=== PATIENT | female | born 1945 | race Caucasian/White ===

== ENCOUNTER → 2018-04-22 11:11 | Outpatient (CLI) | payer OTHER, SELFPAY ==
[2018-04-22 12:56] LABS: Thyroid Stimulating Hormone 2.19 uIU/mL (0.47-4.68)
== END ==
PROVIDERS: PCP Physician Assistant; Visit Provider Physician Assistant
DX: E03.9 Hypothyroidism, unspecified (principal)
CPT/HCPCS: 36415; 84443

== ENCOUNTER → 2019-08-15 11:03 | Outpatient (CLI) | payer OTHER, SELFPAY ==
--- NOTE | 2019-08-15 | DI.MG.S_ITS ---
BILATERAL DIGITAL SCREENING MAMMOGRAM 3D/2D WITH CAD: 08/15/2019 CLINICAL: Routine screening. Comparison is made to exams dated: 08/10/2017 mammogram, 05/09/2015 mammogram, and 04/21/2013 mammogram - [facility]. The tissue of both breasts is extremely dense, which lowers the sensitivity of mammography. Current study was also evaluated with a Computer Aided Detection (CAD) system. No significant masses, calcifications, or other findings are seen in either breast. There has been no significant interval change. IMPRESSION: NEGATIVE There is no mammographic evidence of malignancy. A 1 year screening mammogram is recommended. This exam was interpreted at Station ID: [id number]. NOTE: For mammograms, a report in lay terms will be sent to the patient. Approximately 15% of breast malignancies will not be visualized mammographically. In the management of a palpable breast mass, a negative mammogram must not discourage biopsy of a clinically suspicious lesion. Electronically Signed By: Celia eid/johnson:08/15/2019 12:00:14 letter sent: Normal Exam ACR BI-RADS Category 1: Negative 3341F
== END ==
PROVIDERS: Family Provider Physician Assistant; PCP Physician Assistant; Visit Provider Physician Assistant
DX: Z12.31 Encounter for screening mammogram for malignant neoplasm of breast (principal)
CPT/HCPCS: 77063; 77067

== ENCOUNTER → 2019-11-17 19:14 | Outpatient (ROUT) | payer MEDICARE, SELFPAY ==
[2019-11-17 19:36] LABS: Add Manual Diff / Slide Review NO; Basophils Absolute Auto 100 /uL (0-100); Basophils Percent Auto 0.9 % (0-2); Eosinophils Absolute Auto 200 /uL (0-450); Eosinophils Percent Auto 2.7 % (2-4); Hematocrit 38.4 % (36-46); Hemoglobin 13.1 g/dL (12.0-16.0); Lymphocytes Absolute Auto 2200 /uL (1100-4500); Lymphocytes Percent Auto 35.8 % (25-40); Mean Corpuscular HGB Conc 34.1 % (30-36); Mean Corpuscular Volume 96.9 fL (80-100); Monocytes Absolute Auto 600 /uL (0-900); Monocytes Percent Auto 9.3 % (3-14); Neutrophils Absolute Auto 3200 /uL (1500-7000); Neutrophils Percent Auto 51.3 % (50-75); Platelet Count 222 X10^3/uL (150-400); Red Blood Cell Count 3.96 X10^6/uL (4.0-5.2); Red Cell Distribution Width 12.4 % (11.6-14.8); White Blood Cell Count 6.3 X10^3/uL (4.5-11.0)
[2019-11-17 19:46] LABS: Alanine Aminotransferase 25 IU/L (<35); Albumin 4.3 g/dL (3.5-5.0); Albumin Globulin Ratio 1.4 (1.0-2.8); Alkaline Phosphatase 70 U/L (38-126); Aspartate Aminotransferase 35 IU/L (14-36); BUN Creatinine Ratio 25.6 (6-22); Bilirubin Total 0.4 mg/dL (0.2-1.3); Blood Urea Nitrogen 23 mg/dL (7-17); Calcium 9.6 mg/dL (8.4-10.2); Carbon Dioxide 26 mmol/L (22-32); Chloride 96 mmol/L (98-107); Cholesterol 191 mg/dL (140-199); Estimated Glomerular Filt Rate > 60.0 mL/min (>60); Glucose 83 mg/dL (80-110); HDL Cholesterol 67 mg/dL (40-60); HEMOLYSIS 16 (0-50); LDL Cholesterol Calculated 90 mg/dL (<100); Potassium 4.4 mmol/L (3.4-5.1); Sodium 133 mmol/L (137-145); Total Protein 7.3 g/dL (6.3-8.2); Triglycerides 168 mg/dL (35-150)
[2019-11-17 20:01] LABS: Vitamin D 25 Hydroxy (D3) 78.2 ng/mL (30.0-100.0)
[2019-11-17 20:14] LABS: TSH w/ Reflex to FT4 0.72 uIU/mL (0.47-4.68)
== END ==
PROVIDERS: Family Provider Physician Assistant; PCP Physician Assistant; Visit Provider Physician Assistant
DX: E03.9 Hypothyroidism, unspecified (principal); E78.2 Mixed hyperlipidemia; E55.9 Vitamin D deficiency, unspecified
CPT/HCPCS: 80053; 80061; 82306; 84443; 85025

== ENCOUNTER → 2019-11-29 13:35 | Outpatient (CLI) | payer MEDICARE, SELFPAY | PROVIDERS: Family Provider Physician Assistant; PCP Physician Assistant; Referring Provider Physician Assistant; Visit Provider Physician Assistant | DX: M85.832 Other specified disorders of bone density and structure, left forearm (principal); Z78.0 Asymptomatic menopausal state; E07.9 Disorder of thyroid, unspecified | CPT/HCPCS: 77080; 77081 ==

== ENCOUNTER → 2020-08-22 15:50 | Outpatient (CLI) | payer MEDICARE, SELFPAY ==
--- NOTE | 2020-08-22 15:57 | DI.RAD.S_ITS ---
PROCEDURE: XR KNEE LT 3V INDICATIONS: left knee pain TECHNIQUE: 3 views of the knee were acquired. COMPARISON: None. FINDINGS: Bones: No fractures or dislocations. No suspicious bony lesions. Slight narrowing of the lateral facet of the patellofemoral joint. Soft tissues: No joint effusion. No suspicious soft tissue calcifications. IMPRESSION: No trauma found, no effusion or intra-articular loose body seen. A mild degree of degenerative joint space narrowing is noted at the lateral facet of the patellofemoral joint, and otherwise a source of current pain is not found. Dictated by: Emery De La Torre M.D. on 08/22/2020 at 16:22 Approved by: Emery De La Torre M.D. on 08/22/2020 at 16:23
== END ==
PROVIDERS: Family Provider Physician Assistant; PCP Physician Assistant; Referring Provider Physician Assistant; Visit Provider Physician Assistant
DX: M25.562 Pain in left knee (principal)
CPT/HCPCS: 73562

== ENCOUNTER → 2020-08-30 14:22 | Outpatient (CLI) | payer MEDICARE, SELFPAY ==
[2020-08-30 14:38] LABS: Add Manual Diff / Slide Review NO; Basophils Absolute Auto 100 /uL (0-100); Basophils Percent Auto 0.9 % (0-2); Eosinophils Absolute Auto 200 /uL (0-450); Eosinophils Percent Auto 2.4 % (2-4); Hematocrit 36.3 % (36-46); Hemoglobin 12.6 g/dL (12.0-16.0); Lymphocytes Absolute Auto 2100 /uL (1100-4500); Lymphocytes Percent Auto 28.5 % (25-40); Mean Corpuscular HGB Conc 34.8 % (30-36); Mean Corpuscular Volume 97.7 fL (80-100); Monocytes Absolute Auto 500 /uL (0-900); Monocytes Percent Auto 7.1 % (3-14); Neutrophils Absolute Auto 4400 /uL (1500-7000); Neutrophils Percent Auto 61.1 % (50-75); Platelet Count 226 X10^3/uL (150-400); Red Blood Cell Count 3.71 X10^6/uL (4.0-5.2); Red Cell Distribution Width 12.8 % (11.6-14.8); White Blood Cell Count 7.2 X10^3/uL (4.5-11.0)
[2020-08-30 15:15] LABS: Alanine Aminotransferase 32 IU/L (<35); Albumin 4.3 g/dL (3.5-5.0); Albumin Globulin Ratio 1.4 (1.0-2.8); Alkaline Phosphatase 78 U/L (38-126); Aspartate Aminotransferase 37 IU/L (14-36); BUN Creatinine Ratio 17.9 (6-22); Bilirubin Total 0.4 mg/dL (0.2-1.3); Blood Urea Nitrogen 21 mg/dL (7-17); Carbon Dioxide 29 mmol/L (22-32); Chloride 98 mmol/L (98-107); Cholesterol 192 mg/dL (140-199); Estimated Glomerular Filt Rate 45.2 mL/min (>60); Glucose 96 mg/dL (80-110); HDL Cholesterol 70 mg/dL (40-60); HEMOLYSIS 18 (0-50); LDL Cholesterol Calculated 78 mg/dL (<100); Sodium 131 mmol/L (137-145); Total Protein 7.3 g/dL (6.3-8.2); Triglycerides 220 mg/dL (35-150)
[2020-08-30 15:31] LABS: Vitamin D 25 Hydroxy (D3) 60.8 ng/mL (30.0-100.0)
[2020-08-30 15:45] LABS: TSH w/ Reflex to FT4 7.72 uIU/mL (0.47-4.68)
[2020-08-30 16:15] LABS: Free T4, Direct Thyroxine 0.94 ng/dL (0.78-2.19)
== END ==
PROVIDERS: Family Provider Physician Assistant; PCP Physician Assistant; Referring Provider Physician Assistant; Visit Provider Physician Assistant
DX: E03.9 Hypothyroidism, unspecified (principal); E78.2 Mixed hyperlipidemia; E55.9 Vitamin D deficiency, unspecified
CPT/HCPCS: 36415; 80053; 80061; 82306; 84439; 84443; 85025

== ENCOUNTER → 2020-09-26 14:05 | Outpatient (CLI) | payer MEDICARE, SELFPAY ==
[2020-09-26 14:44] LABS: Alanine Aminotransferase 24 IU/L (<35); Albumin 4.3 g/dL (3.5-5.0); Albumin Globulin Ratio 1.6 (1.0-2.8); Alkaline Phosphatase 67 U/L (38-126); Aspartate Aminotransferase 29 IU/L (14-36); BUN Creatinine Ratio 21.9 (6-22); Bilirubin Total 0.4 mg/dL (0.2-1.3); Blood Urea Nitrogen 23 mg/dL (7-17); Calcium 9.2 mg/dL (8.4-10.2); Carbon Dioxide 30 mmol/L (22-32); Chloride 97 mmol/L (98-107); Estimated Glomerular Filt Rate 51.2 mL/min (>60); Globulin 2.7 g/dL (1.7-4.1); Glucose 117 mg/dL (80-110); HEMOLYSIS < 15 (0-50); Potassium 4.6 mmol/L (3.4-5.1); Sodium 130 mmol/L (137-145)
[2020-09-26 15:15] LABS: TSH w/ Reflex to FT4 0.53 uIU/mL (0.47-4.68)
== END ==
PROVIDERS: Family Provider Physician Assistant; PCP Physician Assistant; Referring Provider Physician Assistant; Visit Provider Physician Assistant
DX: E03.9 Hypothyroidism, unspecified (principal); E87.1 Hypo-osmolality and hyponatremia
CPT/HCPCS: 36415; 80053; 84443

== ENCOUNTER → 2020-10-07 14:25 | Outpatient (CLI) | payer MEDICARE, SELFPAY ==
[2020-10-07 16:40] LABS: Sodium Urine Random 22 mmol/L (30-90)
[2020-10-07 17:21] LABS: BUN Creatinine Ratio 18.3 (6-22); Blood Urea Nitrogen 20 mg/dL (7-17); Carbon Dioxide 27 mmol/L (22-32); Chloride 98 mmol/L (98-107); Estimated Glomerular Filt Rate 49.1 mL/min (>60); Glucose 106 mg/dL (80-110); HEMOLYSIS < 15 (0-50); Potassium 4.3 mmol/L (3.4-5.1); Sodium 130 mmol/L (137-145)
[2020-10-08 14:10] LABS: Osmolality Urine 284 mOsmol/kg (.); Osmolality, Serum 279 mOsmol/kg (280-301)
== END ==
PROVIDERS: Family Provider Physician Assistant; PCP Physician Assistant; Referring Provider Physician Assistant; Visit Provider Physician Assistant
DX: E03.9 Hypothyroidism, unspecified (principal); E87.1 Hypo-osmolality and hyponatremia
CPT/HCPCS: 36415; 80048; 83930; 83935; 84300

== ENCOUNTER → 2020-12-12 13:49 | Outpatient (CLI) | payer OTHER, SELFPAY ==
[2020-12-12 14:35] LABS: Add Manual Diff / Slide Review NO; Basophils Absolute Auto 100 /uL (0-100); Eosinophils Absolute Auto 100 /uL (0-450); Eosinophils Percent Auto 1.9 % (2-4); Hematocrit 36.6 % (36-46); Hemoglobin 12.5 g/dL (12.0-16.0); Lymphocytes Absolute Auto 2000 /uL (1100-4500); Lymphocytes Percent Auto 34.6 % (25-40); Mean Corpuscular Hemoglobin 33.2 PG (26-34); Mean Corpuscular Volume 97.5 fL (80-100); Monocytes Absolute Auto 500 /uL (0-900); Neutrophils Absolute Auto 3100 /uL (1500-7000); Neutrophils Percent Auto 54.5 % (50-75); Platelet Count 210 X10^3/uL (150-400); Red Blood Cell Count 3.76 X10^6/uL (4.0-5.2); Red Cell Distribution Width 12.8 % (11.6-14.8); White Blood Cell Count 5.7 X10^3/uL (4.5-11.0)
[2020-12-12 15:36] LABS: Alanine Aminotransferase 26 IU/L (<35); Albumin 4.1 g/dL (3.5-5.0); Albumin Globulin Ratio 1.5 (1.0-2.8); Alkaline Phosphatase 69 U/L (38-126); Aspartate Aminotransferase 30 IU/L (14-36); BUN Creatinine Ratio 21.4 (6-22); Bilirubin Total 0.3 mg/dL (0.2-1.3); Blood Urea Nitrogen 18 mg/dL (7-17); Calcium 9.2 mg/dL (8.4-10.2); Carbon Dioxide 29 mmol/L (22-32); Chloride 96 mmol/L (98-107); Estimated Glomerular Filt Rate > 60.0 mL/min (>60); Globulin 2.7 g/dL (1.7-4.1); Glucose 122 mg/dL (80-110); HEMOLYSIS < 15 (0-50); Potassium 4.2 mmol/L (3.4-5.1); Sodium 131 mmol/L (137-145); Total Protein 6.8 g/dL (6.3-8.2)
[2020-12-12 15:54] LABS: Sodium Urine Random 42 mmol/L (30-90)
[2020-12-12 16:06] LABS: TSH w/ Reflex to FT4 1.95 uIU/mL (0.47-4.68)
[2020-12-13 13:15] LABS: Osmolality Urine 313 mOsmol/kg (.); Osmolality, Serum 281 mOsmol/kg (280-301)
== END ==
PROVIDERS: Family Provider Physician Assistant; PCP Physician Assistant; Referring Provider Physician Assistant; Visit Provider Physician Assistant
DX: E03.9 Hypothyroidism, unspecified (principal); E78.2 Mixed hyperlipidemia; E55.9 Vitamin D deficiency, unspecified
CPT/HCPCS: 36415; 80053; 83930; 83935; 84300; 84443; 85025

== ENCOUNTER → 2021-01-07 10:57 | Outpatient (CLI) | payer OTHER, SELFPAY ==
--- NOTE | 2021-01-07 | DI.RAD.S_ITS ---
PROCEDURE: XR LUMBAR SPINE 2-3V INDICATIONS: LOW BACK PAIN TECHNIQUE: To views of the lumbar spine were acquired. COMPARISON: None. FINDINGS: Bones: 5 [id number] vertebrae are present. There is severe levoscoliosis. No vertebral body compression fractures. No suspicious bony lesions. Severe degenerative disc disease at L1-L2 a L2-L3, and moderate degenerative disc disease at T11-T12, T12-L1, L3-L4 and L4-L5. Severe facet arthropathy at L2-L3, L3-L4, L4-L5 and L5-S1. Soft tissues: Overlying bowel gas pattern is normal. No suspicious soft tissue calcifications. IMPRESSION: 1. Severe scoliosis. 2. Severe degenerative disc and facet disease in lumbar spine as described. Dictated by: Tyshawn Cruz M.D. on 01/07/2021 at 13:03 Approved by: Tyshawn Cruz M.D. on 01/07/2021 at 13:08
== END ==
PROVIDERS: Family Provider Physician Assistant; PCP Physician Assistant; Referring Provider Physician Assistant; Visit Provider Physician Assistant
DX: M54.5 Low back pain (principal); M41.9 Scoliosis, unspecified; M51.36 Other intervertebral disc degeneration, lumbar region; M51.34 Other intervertebral disc degeneration, thoracic region; M47.816 Spondylosis without myelopathy or radiculopathy, lumbar region; M47.817 Spondylosis without myelopathy or radiculopathy, lumbosacral region
CPT/HCPCS: 72100

== ENCOUNTER → 2021-01-15 14:06 | Outpatient (CLI) | payer OTHER, SELFPAY ==
--- NOTE | 2021-01-15 | DI.MG.S_ITS ---
BILATERAL DIGITAL DIAGNOSTIC MAMMOGRAM 3D/2D: 01/15/2021 CLINICAL: Left breast pain. Comparison is made to exams dated: 08/15/2019 mammogram, 08/10/2017 mammogram, and 05/09/2015 mammogram - [facility]. The tissue of both breasts is extremely dense, which lowers the sensitivity of mammography. No significant masses, calcifications, or other findings are seen in either breast. There has been no significant interval change. IMPRESSION: NEGATIVE There is no mammographic evidence of malignancy. A 1 year screening mammogram is recommended. This exam was interpreted at Station ID: [id number]. NOTE: For mammograms, a report in lay terms will be sent to the patient. Approximately 15% of breast malignancies will not be visualized mammographically. In the management of a palpable breast mass, a negative mammogram must not discourage biopsy of a clinically suspicious lesion. Electronically Signed By: Quinton Grimm M.D., jr/johnson:01/15/2021 14:42:55 letter sent: Normal Exam ACR BI-RADS Category 1: Negative [id number]
--- NOTE | 2021-01-15 | DI.MRI.S_ITS ---
PROCEDURE: MR KNEE LT WO CON INDICATIONS: PAIN IN LEFT KNEE TECHNIQUE: Noncontrast sagittal PD fast spin echo and T2 fast spin echo with fat saturation, sagittal 3-D FLASH with fat saturation; coronal T1 spin echo and PD fast spin echo with fat saturation, and axial PD fast spin echo with fat saturation through the knee. COMPARISON: [facility], CR, XR KNEE LT 3V, 08/22/2020, 15:48. FINDINGS: Image quality: Excellent. Menisci: Radial tear at the posterior root attachment of the medial meniscus measures approximately 4 mm in width. There is mild intrasubstance degeneration and mild extrusion of the meniscal body beyond the femorotibial joint line. Intrasubstance degeneration is seen in the lateral meniscus at the junction of the anterior horn and body that may include degenerative tearing. Cruciate ligaments: The anterior and posterior cruciate ligaments appear intact. Medial structures: The medial collateral ligament appears intact. The semimembranosus tendon insertions and meniscocapsular junction appear intact. Visualized portions of the pes anserinus tendons appear normal. No abnormal bursal fluid. Lateral structures: The lateral collateral ligament, long and short heads of the biceps femoris tendon appear intact. The popliteus tendon appears intact. No signs of posterolateral corner injury. Iliotibial band appears normal. Anterior structures: Enthesophyte formation is seen at the distal quadriceps tendon insertion. The patellar tendon is intact. Patellar alignment is normal. No femoral trochlear dysplasia or ventral trochlear prominence. No edema in the infrapatellar fat pad. Bones and cartilage: No bone marrow contusions or fractures. Full-thickness cartilage loss is seen in the posterior weight-bearing portion of the medial femoral condyle measuring 9 x 9 mm with subchondral edema. High-grade and full-thickness cartilage loss is seen in the medial tibial plateau with mild subchondral edema. There is mild partial-thickness cartilage irregularity in the lateral compartment. Mild to moderate partial-thickness cartilage irregularity is seen in the anterior compartment. Joint space: There is a moderate joint effusion with mild synovial hypertrophy. A large medial popliteal cyst is seen measuring up to 8.1 cm in superior -inferior extent. There is mild prepatellar soft tissue edema. IMPRESSION: 1. Radial tear of the posterior root attachment of the medial meniscus measuring 4 mm in width. Mild extrusion and degeneration of the medial meniscal body. 2. Severe intrasubstance degeneration at the junction of the anterior horn and body the lateral meniscus that may include degenerative tearing. 3. Full-thickness cartilage defect in the posterior weight-bearing portion of the medial femoral condyle measures 9 x 9 mm. 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 4. Moderate joint effusion with mild synovial hypertrophy. Large medial popliteal cyst. Dictated by: Roly Tobias M.D. on 01/15/2021 at 14:48 Approved by: Roly Tobias M.D. on 01/15/2021 at 15:14
== END ==
PROVIDERS: Family Provider Physician Assistant; PCP Physician Assistant; Referring Provider Physician Assistant; Visit Provider Physician Assistant
DX: M25.562 Pain in left knee (principal); S83.242A Other tear of medial meniscus, current injury, left knee, initial encounter; M94.262 Chondromalacia, left knee; M25.462 Effusion, left knee; M71.22 Synovial cyst of popliteal space [Baker], left knee; N64.4 Mastodynia
CPT/HCPCS: 73721; 77066; G0279

== ENCOUNTER → 2021-02-27 13:34 | Outpatient (CLI) | payer OTHER, SELFPAY ==
--- NOTE | 2021-02-27 | DI.MRI.S_ITS ---
PROCEDURE: MR LUMBAR SPINE WO CON INDICATIONS: LOW BACK PAIN TECHNIQUE: Noncontrast sagittal T1 spin echo and T2 fast echo, sagittal STIR, axial T1 and T2 fast spin echo through the lumbar spine. In cases with scoliosis, additional coronal T2 fast spin echo may be performed. COMPARISON: None. FINDINGS: Image quality: This examination is limited by involuntary motion artifact. Alignment and Curvature: There is moderate levoconvex lumbar scoliosis. There is mild retrolisthesis seen at L1-L2, with minimal retrolisthesis at L2-L3. Mild grade 1 anterolisthesis is seen at L3-L4. There is mild retrolisthesis at L4-L5. Bone Marrow: Marrow is of normal overall signal. Scattered foci are seen, which are hyperintense on T1-weighted and T2-weighted imaging, which are most consistent with benign vertebral body hemangiomas. No acute vertebral body compression fractures. Fatty metaplasia can be seen involving both sides of the sacrum. Spinal Cord: Conus medullaris terminates at the L1 level. Visualized cord demonstrates normal signal and size. Paraspinous Soft Tissues: No paravertebral masses. T12-L1: At least moderate loss of disc height and disc signal can be seen. Bridging endplate osteophytes are seen. Mild generalized disc bulge is seen. There is mild right-sided and no significant left-sided neural foraminal narrowing seen. The central canal is widely patent. L1-L2: At least moderate loss of disc height and disc signal can be seen. Bridging endplate osteophytes are seen. Moderate generalized disc bulge is seen. There is [id number] left-sided and at least moderate right-sided neural foraminal narrowing seen. Mild to moderate central canal narrowing is seen. L2-L3: At least moderate loss of disc height and disc signal can be seen on the left side. Moderate disc bulge is seen, which is eccentric to the right. Endplate irregularity is seen, including bridging endplate osteophytes on the right. There is at least moderate right-sided and minimal left-sided neural foraminal narrowing seen. Mild to moderate central canal narrowing is seen. L3-L4: Moderate to severe loss of disc height and disc signal can be seen on the right side. Endplate irregularity is seen, including bridging endplate osteophytes on the right. Moderate facet joint hypertrophy is seen. Moderate generalized disc bulge is seen. There is at least moderate bilateral neural foraminal narrowing seen, right worse than left. Moderate central canal narrowing is seen. L4-L5: Moderate to severe loss of disc height and disc signal can be seen. At least moderate disc bulge is seen, which is eccentric to the left. There are bridging endplate osteophytes seen on the left. At least moderate facet hypertrophy is seen. There is moderate to severe bilateral neural foraminal narrowing seen. There is a degree of compression seen upon the exiting nerve roots. At least moderate central canal narrowing is seen. L5-S1: Mild loss of disc height is seen. Loss of disc signal is seen. Moderate disc bulge is seen, which is eccentric to the left side. Bridging endplate osteophytes are seen on the left. There is minimal right-sided and at least moderate left-sided neural foraminal narrowing seen. A degree of compression can be seen upon the exiting left L5 nerve root. Mild central canal narrowing is seen. IMPRESSION: Multiple levels of lumbar spine degenerative change are seen, which are overall worst at the L4-L5 level. Moderate levoconvex lumbar scoliosis. Dictated by: Romero Aiken M.D. on 02/27/2021 at 14:34 Approved by: Romero Aiken M.D. on 02/27/2021 at 14:41
== END ==
PROVIDERS: Family Provider Physician Assistant; PCP Physician Assistant; Referring Provider Physical Medicine & Rehabilitation; Visit Provider Physical Medicine & Rehabilitation
DX: M54.5 Low back pain (principal); M47.816 Spondylosis without myelopathy or radiculopathy, lumbar region; M41.86 Other forms of scoliosis, lumbar region
CPT/HCPCS: 72148

== ENCOUNTER → 2021-04-07 14:43 | Outpatient (CLI) | payer OTHER, SELFPAY ==
[2021-04-07 15:25] LABS: BUN Creatinine Ratio 22.1 (6-22); Blood Urea Nitrogen 19 mg/dL (7-17); Calcium 9.2 mg/dL (8.4-10.2); Carbon Dioxide 23 mmol/L (22-32); Chloride 101 mmol/L (98-107); Estimated Glomerular Filt Rate > 60.0 mL/min (>60); Glucose 117 mg/dL (80-110); HEMOLYSIS < 15 (0-50); Sodium 133 mmol/L (137-145)
== END ==
PROVIDERS: Family Provider Physician Assistant; PCP Physician Assistant; Referring Provider Physician Assistant; Visit Provider Physician Assistant
DX: E87.1 Hypo-osmolality and hyponatremia (principal)
CPT/HCPCS: 36415; 80048

== ENCOUNTER → 2022-08-11 11:22 | Outpatient (CLI) | payer OTHER, SELFPAY ==
--- NOTE | 2022-08-11 | DI.RAD.S_ITS ---
PROCEDURE: XR KNEE RT 4V INDICATIONS: RIGHT KNEE PAIN TECHNIQUE: 3 views of the knee were acquired. COMPARISON: None. FINDINGS: Bones: No fractures or dislocations. No suspicious bony lesions. Soft tissues: Moderate suprapatellar joint effusion. No suspicious soft tissue calcifications. IMPRESSION: Moderate suprapatellar knee effusion without fracture. Superior patellar enthesophytes. 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 Dictated by: Quinton Grimm M.D. on 08/11/2022 at 13:19 Approved by: Quinton Grimm M.D. on 08/11/2022 at 13:21
== END ==
PROVIDERS: Family Provider Physician Assistant; PCP Physician Assistant; Referring Provider Physician Assistant; Visit Provider Physician Assistant
DX: M25.561 Pain in right knee (principal); M25.461 Effusion, right knee
CPT/HCPCS: 73564

== ENCOUNTER → 2022-12-30 10:45 | Outpatient (CLI) | payer OTHER, SELFPAY ==
--- NOTE | 2022-12-30 | DI.MG.S_ITS ---
BILATERAL DIGITAL SCREENING MAMMOGRAM 3D/2D WITH CAD: 12/30/2022 CLINICAL: Routine screening. Comparison is made to exams dated: 01/15/2021 mammogram, 08/15/2019 mammogram, 08/10/2017 mammogram, and 05/09/2015 mammogram - [facility]. Both breasts are heterogeneously dense, which may obscure small masses (category c / 51-75% glandular tissue). Current study was also evaluated with a Computer Aided Detection (CAD) system. No significant masses, calcifications, or other findings are seen in either breast. There has been no significant interval change. IMPRESSION: NEGATIVE There is no mammographic evidence of malignancy. A 1 year screening mammogram is recommended. Based on the Tyrer Cuzick model (a risk assessment model) the patient's lifetime risk is 6.3% and her 10 year risk is 0.0%. According to the ACR, ACS, and NCCN guidelines, an annual breast MRI exam along with mammogram is recommended if the patient's lifetime risk is 20% or greater. This exam was interpreted at Station ID: [id number]. NOTE: For mammograms, a report in lay terms will be sent to the patient. Approximately 15% of breast malignancies will not be visualized mammographically. In the management of a palpable breast mass, a negative mammogram must not discourage biopsy of a clinically suspicious lesion. Electronically Signed By: Jarrell huffman/johnson:12/30/2022 13:34:33 letter sent: Normal Exam ACR BI-RADS Category 1: Negative 3341F
== END ==
PROVIDERS: Family Provider Physician Assistant; PCP Physician Assistant; Referring Provider Physician Assistant; Visit Provider Physician Assistant
DX: Z12.31 Encounter for screening mammogram for malignant neoplasm of breast (principal)
CPT/HCPCS: 77063; 77067

== ENCOUNTER → 2025-01-09 14:19 | Outpatient (CLI) | payer MEDICARE, SELFPAY ==
--- NOTE | 2025-01-09 14:22 | DI.MG.S_ITS ---
MM screening mammo BI: 01/09/2025. BI-RADS: 1 CLINICAL: 79-year old female for bilateral screening mammogram. Tyrer-Cuzick lifetime risk of 4.7%. No personal or first-degree family history of breast cancer. PRIOR EXAMS 12/30/2022, 01/15/2021, 08/15/2019, 08/10/2017, 05/09/2015. MAMMOGRAPHY TECHNIQUE: 2D and 3D (tomosynthesis) digital mammographic views obtained, with additional images as needed for full coverage. Current study was also evaluated with a Computer Aided Detection (CAD) system. DENSITY D. The breasts are extremely dense, which lowers the sensitivity of mammography. MAMMOGRAPHY FINDINGS Bilateral: No suspicious mass, asymmetry, microcalcification, or other abnormality seen. IMPRESSION: * No evidence of malignancy. RECOMMENDATIONS Bilateral * Annual screening mammography. OVERALL ASSESSMENT CATEGORY BI-RADS-1: Negative. The [employer] recommends annual screening mammography beginning at age 40 for women with average risk of breast cancer. ELECTRONICALLY SIGNED: Kayleen Dyson M.D. on 01/10/2025 at 08:13:11 AM PT Interpreting Station ID: [id number]
--- NOTE | 2025-01-09 14:22 | DI.RAD.S_ITS ---
PROCEDURE: XR DEXA AXIAL SKELETON INDICATIONS: SCREENING COMPARISON: [facility], , XR DEXA AXIAL SKELETON, 11/29/2019, 14:06. FINDINGS: Lumbar Spine: Bone mineral density 1.053 g/cm2, T score 0.3. Left Femoral Neck: Bone mineral density 0.663 g/cm2, T score -1.7. Left Hip: Bone mineral density 0.765 g/cm2, T score -1.4. Fracture Risk Calculation (when applicable): 10-year fracture risk of a major osteoporotic fracture 13 percent and of a hip fracture 3.2 percent. (T score greater or equal to -1.0 to: NORMAL) (T score from -1.1 to -2.4: OSTEOPENIA) (T score less than or equal to -2.5: OSTEOPOROSIS) IMPRESSION: Osteopenia---recommend repeat DEXA in 2-3 years for reassessment. Follow-up guidelines as follows: Osteoporosis: Consider a repeat DEXA and Vertebral Fracture Assessment (VFA) exam in 2 years or sooner if medically necessary, to reassess this patient's status. Osteopenia: Consider a repeat DEXA in 2-3 years to reassess this patient's status, or if there is a new clinical indication. Normal: Consider a repeat DEXA in 5 years or sooner, or if there is a new clinical indication. All treatment decisions require clinical judgment and consideration of individual patient factors, including patient preferences, comorbidities, previous drug use, risk factors not captured in the FRAX model (e.g., frailty, falls, vitamin D deficiency, increased bone turnover, interval significant decline in bone density ) and possible under- or over-estimation of fracture risk by FRAX. In addition, the NOF Guide recommends that FDA-approved medical therapies be considered in postmenopausal women and men age >= 50 years with a: * Hip or vertebral (clinical or morphometric) fracture * T-score of <=-2.5 at the spine or hip * Ten-year fracture probability by FRAX of >= 3% for hip fracture or >=20% for major osteoporotic fracture. Dictated by: Eusebio Hurtado M.D. on 01/10/2025 at 2:06 Approved by: Eusebio Hurtado M.D. on 01/10/2025 at 2:08
== END ==
PROVIDERS: Family Provider Physician Assistant; PCP Physician Assistant; Referring Provider Physician Assistant; Visit Provider Physician Assistant
DX: Z12.31 Encounter for screening mammogram for malignant neoplasm of breast (principal); R92.343 Mammographic extreme density, bilateral breasts; M85.852 Other specified disorders of bone density and structure, left thigh; Z78.0 Asymptomatic menopausal state
CPT/HCPCS: 77063; 77067; 77080

== ENCOUNTER → 2025-03-23 09:19 | Outpatient (CLI) | payer MEDICARE, SELFPAY ==
--- NOTE | 2025-03-23 09:21 | DI.RAD.S_ITS ---
PROCEDURE: XR LUMBAR SPINE MIN 4V INDICATIONS: Back pain TECHNIQUE: 5 views of the lumbar spine were acquired, including bilateral oblique views. COMPARISON: [facility], CR, XR LUMBAR SPINE 2-3V, 01/07/2021, 11:10. FINDINGS: Diffuse osseous demineralization. Rudimentary ribs at T12, followed by 5 non rib-bearing lumbar vertebrae. Moderate levocurvature of the lumbar spine with the apex at L2. Otherwise, straightening of the lumbar lordosis. Mild-moderate multilevel foraminal narrowing. The vertebral body heights are preserved. Multilevel moderate-severe intervertebral disc height loss. Mild bilateral sacroiliac osteoarthritis. Partially identified moderate hiatal hernia with an air-fluid level. IMPRESSION: 1. Multilevel lumbar osteoarthrosis, most conspicuous at L4-L5 and L5-S1. 2. Moderate hiatal hernia. Dictated by: Eusebio Garza M.D. on 03/23/2025 at 11:29 Approved by: Eusebio Garza M.D. on 03/23/2025 at 11:31
== END ==
PROVIDERS: Family Provider Physician Assistant; PCP Physician Assistant; Referring Provider Physical Medicine & Rehabilitation; Visit Provider Physical Medicine & Rehabilitation
DX: M54.9 Dorsalgia, unspecified (principal); M47.816 Spondylosis without myelopathy or radiculopathy, lumbar region; M47.817 Spondylosis without myelopathy or radiculopathy, lumbosacral region; K44.9 Diaphragmatic hernia without obstruction or gangrene
CPT/HCPCS: 72110

== ENCOUNTER 2025-03-29 08:13 | Outpatient (CLI) | payer MEDICARE, SELFPAY ==
[2025-03-29] VITALS (8 sets, daily range): BP systolic 119–161; BP diastolic 69–82; PULSE 59–71; RESP 12–16; TEMP 36.2; O2SAT 95–100
[2025-03-29] MEDS: MIDAZOLAM 2 MG/2 ML VIAL IV (09:07)
[2025-03-29] MEDS: iopamidoL 15 ML VIAL 3 ML INJ (09:15)
[2025-03-29] MEDS: BUPIVACAINE 0.5% (PF) 10 ML VIAL 2 ML INJ (09:16)
[2025-03-29] MEDS: LIDOCAINE 1% 20 ML 5 ML INJ (09:16)
--- NOTE | 2025-03-29 09:27 | P.PCN_ITS ---
Date/Time/Diagnoses Date of procedure: 03/29/25 Time of procedure: 09:27 Pre-procedure diagnosis: FACET ARTHROPATHY Post-procedure diagnosis: same Procedure Notes Procedure: 1. BILATERAL L2, L3, L4 DIAGNOSTIC MB BLOCKS Indications: oDrothy is referred by ELOISE Ivey for treatment of Bilateral Axial LBP. Physician: Ky Dodge Total Fluoroscopy time (seconds): 16 Total sedation minutes: 17 Complications: none Procedure in detail & Post-procedure care: DESCRIPTION OF PROCEDURE Fluoroscopically guided, contrast-controlled bilateral L2, L3, L4 medial branch blocks with 0.5cc of 0.5% Marcaine. Following review of allergy and review of potential side effects and complications, including, but not necessarily limited to, infection, allergic reaction, local tissue breakdown, nerve injury, paralysis, stroke and possible , the patient indicated that the patient understood and agreed to proceed. An informed consent document was signed by the patient, witnessed by a nurse, and placed in the patient's chart. After review of previous anaesthesic history and IV conscious sedation the patient was deemed safe to proceed with today's procedure with IV conscious sedation as ASA class II designation. Safety time-out was performed to confirm patient ID, procedure to be performed and site of procedure. IV sedation was accomplished with a combination of 2mg of Versed was administered by the RN after DO order, titrated to patient comfort during the course of the procedure while the patient remained responsive to all verbal commands In the prone position, following sterile prep and drape of the lumbar region, the right L2, L3, L4 anatomical location of the medial branch of the dorsal ramus was identified fluoroscopically. Subsequently an anesthetic skin wheal using 1% lidocaine solution was initiated at each of the anatomical spots. Subsequently then a 22-gauge 3.5-inch spinal needle was atraumatically introduced and advanced under fluoroscopic guidance at each of the corresponding sites at the right L2, L3, L4 MB. After negative aspiration, 0.2cc of Isovue 200 was injected, confirming placement without vascular or intrathecal uptake. Subsequently then 0.5cc of 0.5% Marcaine solution was injected at each of the corresponding sites at the right L2, L3, L4 medial branch locations. The identical procedure was replicated on the left. The patient tolerated the procedure well without signs or symptoms of complications. The patient tolerated the procedure well without signs or symptoms of complications prior to transfer to the recovery area continued monitoring without incident. Post-procedure, the patient was monitored initiating provocative activities to measure the amount of relief from block of the facetogenic pain. The patient reported a VAS of 7 prior to the procedure and a post-procedure VAS of 1. It has been a pleasure to assist in the diagnostic and therapeutic care of your patient. POST OP INSTRUCTIONS The patient was provided with a Pain Log to complete over the next several hours and subsequent days prior to the patient's follow up with the ordering physician. If the patient has operating manager relief to the solution applied, then they may be a candidate for medial branch rhizotomy. The patient is aware, was provided, once again, with a Pain Log and will follow up with the referring physician for review and clinical correlation
== END 2025-03-29 09:45 | disposition home or self-care (01) ==
PROVIDERS: Family Provider Physician Assistant; PCP Physician Assistant; Referring Provider Physical Medicine & Rehabilitation; Visit Provider Physical Medicine & Rehabilitation
DX: M47.816 Spondylosis without myelopathy or radiculopathy, lumbar region (principal)
CPT/HCPCS: 64493; 64494; 99152; J2250

== ENCOUNTER 2025-04-24 14:53 | Outpatient (CLI) | payer MEDICARE, SELFPAY ==
[2025-04-24] VITALS (12 sets, daily range): BP systolic 125–173; BP diastolic 71–97; PULSE 62–88; RESP 9–18; TEMP 36.1; O2SAT 94–100
[2025-04-24] MEDS: MIDAZOLAM 2 MG/2 ML VIAL IV (16:17)
[2025-04-24] MEDS: LIDOCAINE 2% INJ MDV 20ML 5 ML INJ (16:22)
[2025-04-24] MEDS: LIDOCAINE 1% 20 ML 5 ML INJ (16:22)
--- NOTE | 2025-04-24 16:41 | PM.PROC.IR.1 ---
Date/Time/Diagnoses Date of procedure: 04/24/25 Time of procedure: 16:41 Pre-procedure diagnosis: 1. FACET ARTHROPATHY Post-procedure diagnosis: same Procedure Notes Procedure: 1. BILATERAL L2, L3, L4 DIAGNOSTIC MB BLOCKS Indications: Dorothy is referred by ELOISE Ivey for treatment of Bilateral Axial LBP. Physician: Ky Dodge Total Fluoroscopy time (seconds): 18 Total sedation minutes: 18 Complications: none Procedure in detail & Post-procedure care: DESCRIPTION OF PROCEDURE Fluoroscopically guided, contrast-controlled bilateral L2, L3, L4 medial branch blocks with 0.5cc of 2% Lidocaine. Following review of allergy and review of potential side effects and complications, including, but not necessarily limited to, infection, allergic reaction, local tissue breakdown, nerve injury, paralysis, stroke and possible , the patient indicated that the patient understood and agreed to proceed. An informed consent document was signed by the patient, witnessed by a nurse, and placed in the patient's chart. After review of previous anaesthesic history and IV conscious sedation the patient was deemed safe to proceed with today's procedure with IV conscious sedation as ASA class II designation. Safety time-out was performed to confirm patient ID, procedure to be performed and site of procedure. IV sedation was accomplished with a combination of 2mg of Versed was administered by the RN after DO order, titrated to patient comfort during the course of the procedure while the patient remained responsive to all verbal commands In the prone position, following sterile prep and drape of the lumbar region, the right L2, L3, L4 anatomical location of the medial branch of the dorsal ramus was identified fluoroscopically. Subsequently an anesthetic skin wheal using 1% lidocaine solution was initiated at each of the anatomical spots. Subsequently then a 22-gauge 3.5-inch spinal needle was atraumatically introduced and advanced under fluoroscopic guidance at each of the corresponding sites at the right L2, L3, L4 MB. After negative aspiration, 0.2cc of Isovue 200 was injected, confirming placement without vascular or intrathecal uptake. Subsequently then 0.5cc of 2% Lidocaine solution was injected at each of the corresponding sites at the right L2, L3, L4 medial branch locations. The identical procedure was replicated on the left. The patient tolerated the procedure well without signs or symptoms of complications. The patient tolerated the procedure well without signs or symptoms of complications prior to transfer to the recovery area continued monitoring without incident. Post-procedure, the patient was monitored initiating provocative activities to measure the amount of relief from block of the facetogenic pain. The patient reported a VAS of 7 prior to the procedure and a post-procedure VAS of 1. It has been a pleasure to assist in the diagnostic and therapeutic care of your patient. POST OP INSTRUCTIONS The patient was provided with a Pain Log to complete over the next several hours and subsequent days prior to the patient's follow up with the ordering physician. If the patient has maintenance parts technician relief to the solution applied, then they may be a candidate for medial branch rhizotomy. The patient is aware, was provided, once again, with a Pain Log and will follow up with the referring physician for review and clinical correlation
== END 2025-04-24 17:20 | disposition home or self-care (01) ==
LOC: RAD 14:54
PROVIDERS: PCP Physician Assistant; Referring Provider Physician Assistant; Visit Provider Physical Medicine & Rehabilitation
DX: M47.816 Spondylosis without myelopathy or radiculopathy, lumbar region (principal)
CPT/HCPCS: 64493; 64494; 99152; J2250

== ENCOUNTER → 2025-05-14 14:02 | Outpatient (CLI) | payer MEDICARE, SELFPAY ==
[2025-05-14 15:08] LABS: Influenza A - CEPHEID Flu A NEGATIVE (NEGATIVE); Influenza B - CEPHEID Flu B NEGATIVE (NEGATIVE)
[2025-05-14 15:10] LABS: COVID-19 CEPHEID 4-PLEX PCR Negative (Negative)
== END ==
PROVIDERS: PCP Physician Assistant; Visit Provider Chiropractor
DX: R05.1 Acute cough (principal)
CPT/HCPCS: 87637

== ENCOUNTER → 2025-05-14 14:21 | Outpatient (CLI) | payer MEDICARE, SELFPAY ==
--- NOTE | 2025-05-14 14:22 | DI.RAD.S_ITS ---
PROCEDURE: XR STERNUM MIN 2V INDICATIONS: r/o sternal fracture TECHNIQUE: 2 views of the sternum acquired. COMPARISON: None. FINDINGS: Bones: No fractures or dislocations. No suspicious bony lesions. Soft tissues: Retrosternal soft tissues appear normal. IMPRESSION: No displaced fracture. Dictated by: Mynor Hicks M.D. on 05/14/2025 at 15:01 Approved by: Mynor Hicks M.D. on 05/14/2025 at 15:01
== END ==
PROVIDERS: PCP Physician Assistant; Referring Provider Physician Assistant; Visit Provider Chiropractor
DX: R07.89 Other chest pain (principal); R05.1 Acute cough
CPT/HCPCS: 71120; 87637

== ENCOUNTER 2025-05-16 13:00 | Observation (INO) | payer MEDICARE, SELFPAY ==
[2025-05-16] VITALS (12 sets, daily range): BP systolic 144–179; BP diastolic 78–110; PULSE 60–70; RESP 13–20; TEMP 35.8–36.8; O2SAT 94–98; BMI 25.4
--- NOTE | 2025-05-16 13:15 | DI.RAD.S_ITS ---
PROCEDURE: XR CHEST 1V INDICATIONS: Chest Pain TECHNIQUE: One view of the chest was acquired. COMPARISON: None. FINDINGS: Surgical changes and devices: None. Lungs and pleura: Linear opacity within the right base. Mild opacity is present within the left base with blunting of the costophrenic angle. Mediastinum: Mediastinal contours appear normal. Heart size is normal. Bones and chest wall: No suspicious bony lesions. Overlying soft tissues appear unremarkable. Scoliotic curvature. IMPRESSION: Linear right basilar opacity possibly atelectasis versus pneumonia. Mild opacities are present in the left base possibly dependent change/atelectasis/trace effusion. Dictated by: Sharona Schofield M.D. on 05/16/2025 at 13:58 Approved by: Sharona Schofield M.D. on 05/16/2025 at 13:59
--- NOTE | 2025-05-16 13:18 | EKG_ITS ---
[address] [address] Test Date: 2025-05-16 Pat Name: Dorothy Duncan Department: Room: Gender: Female Sole Filler: LEAH : 1945 Requested By: Order Number: [id number] Reading MD: Cory Cormier Measurements Intervals [place] Rate: 73 P: 15 [place]: 188 QRS: -63 QRSD: 140 T: 20 QT: 430 QTc: 473 Interpretive Statements Normal sinus rhythm Right bundle branch block Left anterior fascicular block Bifascicular block Electronically Signed On 05-16-2025 15:10:46 PDT by Cory Cormier
[2025-05-16] MEDS: ASPIRIN 81 MG CHEW TAB 324 MG PO (13:22)
[2025-05-16 13:40] LABS: Add Manual Diff / Slide Review NO; Hematocrit 35.0 % (36-46); Hemoglobin 12.2 g/dL (12.0-16.0); Lymphocytes Absolute Auto 1400 /uL (1100-4500); Mean Corpuscular HGB Conc 34.8 % (30-36); Mean Corpuscular Hemoglobin 34.1 PG (26-34); Mean Corpuscular Volume 98.0 fL (80-100); Platelet Count 240 X10^3/uL (150-400)
[2025-05-16 13:46] LABS: INR 1.0 (0.9-1.3); Prothrombin Time 11.5 SECONDS (9.4-12.5)
[2025-05-16 13:49] LABS: PTT Partial Thromboplastin Tim 33 SECONDS (25.1-36.5)
[2025-05-16 13:50] LABS: Alanine Aminotransferase 21 IU/L (<35); Albumin 4.4 g/dL (3.5-5.0); Albumin Globulin Ratio 1.4 (1.0-2.8); Alkaline Phosphatase 71 U/L (38-126); Blood Urea Nitrogen 17 mg/dL (7-17); Calcium 8.7 mg/dL (8.4-10.2); Carbon Dioxide 24 mmol/L (22-32); Chloride 91 mmol/L (98-107); Creatine Kinase 58 U/L (30-135); Estimated Glomerular Filt Rate 60 mL/min (>60); Globulin 3.2 g/dL (1.7-4.1); Glucose 112 mg/dL (70-99); HEMOLYSIS < 15 (0-50); Lipase 46 U/L (23-300); Magnesium 1.9 mg/dL (1.6-2.3); Potassium 4.7 mmol/L (3.4-5.1); Sodium 123 mmol/L (137-145); Total Protein 7.6 g/dL (6.3-8.2)
[2025-05-16 14:02] LABS: NT-proBNP (BNP-Adult 18+) 67 pg/mL (<450); Troponin I < 0.012 ng/mL (0.01-0.034)
--- NOTE | 2025-05-16 16:26 | DI.CT.S_ITS ---
PROCEDURE: CT ANGIO CHEST PE PROTOCOL INDICATIONS: chest pain, PE suspected TECHNIQUE: After the administration of intravenous contrast, 2 mm thick sections acquired from the pulmonary apices to the posterior costophrenic angles. 3-dimensional maximum intensity projection (MIP) coronal and sagittal reformats were then acquired through the thorax. For radiation dose reduction, the following was used: automated exposure control, adjustment of mA and/or kV according to patient size. COMPARISON: [facility], CR, XR CHEST 1V, 05/16/2025, 13:09. FINDINGS: Image quality: Diagnostic. Pulmonary arteries: Pulmonary arteries are normal in size, and demonstrate no intraluminal filling defects to suggest central pulmonary embolism. Lower Neck: No enlarged lymph nodes. Thyroid: No thyroid nodules which require sonographic follow up, per consensus guidelines. Axillae: No enlarged lymph nodes. Chest Wall: Unremarkable. Bones: S-shaped scoliotic curvature is seen. Accentuated thoracic kyphosis is seen. Age-appropriate bony degenerative changes are seen. Lungs and Pleura: Dependent atelectasis is seen. Mild dependent ground-glass opacity can also be seen. No focal infiltrates are seen. No pneumothorax or pleural effusions are seen. Heart: Heart size is normal. No pericardial effusion. Thoracic Vessels: No aortic aneurysm. Mediastinum and Erica: No enlarged lymph nodes. Esophagus: There is a large hiatal hernia present. Upper Abdomen: Visualized upper abdomen solid organs and bowel loops appear normal. IMPRESSION: No pulmonary embolus. No acute cardiopulmonary process. Additional findings: Large the hiatal hernia Dictated by: Romero Aiken M.D. on 05/16/2025 at 16:03 Approved by: Romero Aiken M.D. on 05/16/2025 at 16:05
[2025-05-16] MEDS: OXYCODONE IR 5 MG TABLET PO (16:31)
--- NOTE | 2025-05-16 16:48 | ED_ITS ---
HPI - Chest Pain General Chief Complaint: Chest Pain Stated Complaint: Chest Pain, Cough Time Seen by Provider: 05/16/25 15:14 Source: patient Mode of arrival: Ambulatory Limitations: no limitations History of Present Illness HPI narrative: This is a 79-year-old female here with right-sided chest pain. She says that her chest hurts all the time but it hurts more to breathe or cough. She has not been having fevers her cough has been nonproductive, she is not dyspneic so much as it hurts to breathe. Does not have a history of heart problems. She has been sick for about 3 weeks with a cough. She was starting to get better and then about 5 days ago she started feeling worse. She has not noted a fever or shaking chills but activity has been diminished secondary to her illness. Recently was at urgent care for this and had a negative viral panel. Related Data Home Medications ?Medication ?Instructions ?Recorded ?Confirmed famotidine 10 mg tablet 10 mg PO BEDTIME 11/01/23 acetaminophen 650 mg 650 mg PO Q12H 03/26/2504/25 tablet,extended release (Tylenol Arthritis Pain) acyclovir 400 mg tablet 400 mg PO 3XD 03/26/2505/14 celecoxib 100 mg capsule 100 mg PO DAILY 03/26/25 cholecalciferol (vitamin D3) 62.5 mcg PO 03/26/2504/25 mcg (2,500 unit) capsule levothyroxine 88 mcg tablet 88 mcg PO DAILY 03/26/25 0 05/14/25 omeprazole 20 mg capsule,delayed 20 mg PO DAILY 05/14/25 release Allergies Allergy/AdvReac Type Severity Reaction Status Date / Time No Known Drug Allergies Allergy Verified 05/14/25 14:00 Patient History Medical History Facet arthropathy, lumbar Lumbosacral stenosis without neurogenic claudication Scoliosis Sliding hiatal hernia Smoking Status: Never smoker Exam Narrative Exam Narrative: Patient appears to be uncomfortable was clutching her chest Initial Vital Signs Initial Vital Signs: Vital Signs Temperature 98.2 F 05/16/25 13:07 Pulse Rate 70 05/16/25 13:07 Respiratory Rate 20 05/16/25 13:07 Blood Pressure 154/84 H 05/16/25 13:07 Pulse Oximetry 98 05/16/25 13:07 Oxygen Delivery Method Room Air 05/16/25 13:07 vital signs are reviewed [facility] Head: normocephalic and atraumatic Face and sinus: face symmetric Mouth: moist mucous membranes Neck Neck: normal visual inspection, supple and No JVD Chest Other: Chest is tender to palpation. There is no rash visible. Breath sounds are equal bilaterally. Cardio Rate: regular rate Rhythm: regular rhythm Heart Sounds: no murmurs Other: Normal heart rate GI Inspection: normal to inspection Palpation: soft Auscultation: normal bowel sounds Back/Spine/Pelvis Back: normal to inspection Skin General: no rashes or lesions noted and warm Neuro General: patient alert, patient oriented x3 and moves all extremities Speech: speech normal Extrem General: full ROM Psych Appearance: grossly normal Course Orders Ordered: ED Orders 05/16/25 13:15 XR chest 1V Stat EKG-12 Lead Stat 05/16/25 13:28 Complete Blood Count AUTO DIFF Stat Comprehensive Metabolic Panel Stat Lipase Stat Magnesium Stat NT-proBNP (BNP-Adult 18+) Stat PTT Partial Thromboplastin [place] Stat Prothrombin Time INR Stat Troponin & CK Cardiac Panel Stat 05/16/25 16:26 CT angio chest PE protocol Stat 05/16/25 17:45 Blood Culture Stat Discontinued Medications Aspirin (Aspirin 81 Mg Chew Tab) 324 mg PO NOW ONE Stop: 05/16/25 13:16 Last Admin: 05/16/25 13:22 Dose: 324 mg Documented By: CTS Oxycodone HCl (Oxycodone Ir 5 Mg Tablet) 5 mg PO NOW ONE Stop: 05/16/25 16:27 Last Admin: 05/16/25 16:31 Dose: 5 mg Documented By: BT Consultations Consultation #1: Case discussed with hospitalist, , accepts admission Vital Signs Vital signs: Vital Signs - 8 hr 05/16/25 13:07 05/16/25 15:14 05/16/25 15:30 Temperature 98.2 F Pulse Rate 70 60 61 Respiratory Rate 20 15 13 Blood Pressure 154/84 H Pulse Oximetry 98 96 96 Oxygen Delivery Method Room Air 05/16/25 15:30 05/16/25 16:00 05/16/25 16:02 Temperature Pulse Rate 67 64 Respiratory Rate 19 18 Blood Pressure 145/86 H Pulse Oximetry 94 98 Oxygen Delivery Method 05/16/25 16:02 05/16/25 16:30 05/16/25 16:30 Temperature Pulse Rate 61 Respiratory Rate 15 Blood Pressure 161/86 H 172/88 H Pulse Oximetry 98 Oxygen Delivery Method 05/16/25 16:47 05/16/25 16:47 05/16/25 17:00 Temperature Pulse Rate 65 Respiratory Rate Blood Pressure 179/110 H 163/93 H Pulse Oximetry 97 Oxygen Delivery Method 05/16/25 17:00 Temperature Pulse Rate 61 Respiratory Rate 15 Blood Pressure Pulse Oximetry 97 Oxygen Delivery Method MDM - Chest Pain Lab Data Lab results narrative: Patient is hyponatremic with a sodium of 123, this appears to be acute. Baseline is about 135 normal troponin and proBNP. 05/16/25 13:28 05/16/25 13:28 Labs: Lab Results 05/16/25 Range/Units 13:28 WBC 6.4 (4.5-11.0) X10^3/uL RBC 3.57 L (4.0-5.2) X10^6/uL Hgb 12.2 (12.0-16.0) g/dL Hct 35.0 L (36-46) % MCV 98.0 (80-100) fL MCH 34.1 H (26-34) PG MCHC 34.8 (30-36) % RDW 12.1 (11.6-14.8) % Plt Count 240 (150-400) X10^3/uL Neut % (Auto) 68.1 (50-75) % Lymph % (Auto) 22.0 L (25-40) % [place] % (Auto) 7.7 (3-14) % Eos % (Auto) 1.5 L (2-4) % Baso % (Auto) 0.7 (0-2) % Neut # (Auto) 4400 (0341-6350) /uL Lymph # (Auto) 1400 (2383-9744) /uL [place] # (Auto) 500 (0-900) /uL Eos # (Auto) 100 (0-450) /uL Baso # (Auto) 0 (0-100) /uL PT 11.5 (9.4-12.5) SECONDS INR 1.0 (0.9-1.3) APTT 33 (25.1-36.5) SECONDS Sodium 123 L (137-145) mmol/L Potassium 4.7 (3.4-5.1) mmol/L Chloride 91 L (98-107) mmol/L Carbon Dioxide 24 (22-32) mmol/L BUN 17 (7-17) mg/dL Creatinine 0.97 (0.52-1.04) mg/dL Estimated GFR 60 (>60) mL/min BUN/Creatinine Ratio 17.5 (6-22) Glucose 112 H (70-99) mg/dL Calcium 8.7 (8.4-10.2) mg/dL Magnesium 1.9 (1.6-2.3) mg/dL Total Bilirubin 0.5 (0.2-1.3) mg/dL AST 31 (14-36) IU/L ALT 21 (<35) IU/L Alkaline Phosphatase 71 (38-126) U/L Total Creatine Kinase 58 (30-135) U/L Troponin I < 0.012 (0.01-0.034) ng/mL NT-Pro-B Natriuret Pep 67 (<450) pg/mL Total Protein 7.6 (6.3-8.2) g/dL Albumin 4.4 (3.5-5.0) g/dL Globulin 3.2 (1.7-4.1) g/dL Albumin/Globulin Ratio 1.4 (1.0-2.8) Lipase 46 (23-300) U/L Imaging Data Chest x-ray: My Impression: Independently reviewed chest x-ray, infiltrative right base Radiologist's Impression: [address] [address] XRay Report Signed Patient: Dorothy Duncan MR#: [id number] : 1945 Acct:[id number] Age/Sex: 79 / F Date of Service: 05/16/25 Loc: ED Accession Number: [id number] Procedure: XR chest 1V Ordering Provider: Demetrio Jean-Baptiste MD PROCEDURE: XR CHEST 1V INDICATIONS: Chest Pain TECHNIQUE: One view of the chest was acquired. COMPARISON: None. FINDINGS: Surgical changes and devices: None. Lungs and pleura: Linear opacity within the right base. Mild opacity is present within the left base with blunting of the costophrenic angle. Mediastinum: Mediastinal contours appear normal. Heart size is normal. Bones and chest wall: No suspicious bony lesions. Overlying soft tissues appear unremarkable. Scoliotic curvature. IMPRESSION: Linear right basilar opacity possibly atelectasis versus pneumonia. Mild opacities are present in the left base possibly dependent change/atelectasis/trace effusion. Dictated by: Sharona Schofield M.D. on 05/16/2025 at 13:58 Approved by: Sharona Schofield M.D. on 05/16/2025 at 13:59 CT scan - chest: My Impression: Independently reviewed CT angio, no pulmonary embolism, infiltrate versus atelectasis at the left base. Radiologist's Impression: [address] [address] [address] Scan Report Signed Patient: Dorothy Duncan MR#: [id number] : 1945 Acct:[id number] Age/Sex: 79 / F Date of Service: 05/16/25 Loc: ED Accession Number: [id number] Procedure: CT angio chest PE protocol Ordering Provider: Demetrio Jean-Baptiste MD PROCEDURE: CT ANGIO CHEST PE PROTOCOL INDICATIONS: chest pain, PE suspected TECHNIQUE: After the administration of intravenous contrast, 2 mm thick sections acquired from the pulmonary apices to the posterior costophrenic angles. 3-dimensional maximum intensity projection (MIP) coronal and sagittal reformats were then acquired through the thorax. For radiation dose reduction, the following was used: automated exposure control, adjustment of mA and/or kV according to patient size. COMPARISON: [facility], CR, XR CHEST 1V, 05/16/2025, 13:09. FINDINGS: Image quality: Diagnostic. Pulmonary arteries: Pulmonary arteries are normal in size, and demonstrate no intraluminal filling defects to suggest central pulmonary embolism. Lower Neck: No enlarged lymph nodes. Thyroid: No thyroid nodules which require sonographic follow up, per consensus guidelines. Axillae: No enlarged lymph nodes. Chest Wall: Unremarkable. Bones: S-shaped scoliotic curvature is seen. Accentuated thoracic kyphosis is seen. Age-appropriate bony degenerative changes are seen. Lungs and Pleura: Dependent atelectasis is seen. Mild dependent ground-glass opacity can also be seen. No focal infiltrates are seen. No pneumothorax or pleural effusions are seen. Heart: Heart size is normal. No pericardial effusion. Thoracic Vessels: No aortic aneurysm. Mediastinum and Erica: No enlarged lymph nodes. Esophagus: There is a large hiatal hernia present. Upper Abdomen: Visualized upper abdomen solid organs and bowel loops appear normal. IMPRESSION: No pulmonary embolus. No acute cardiopulmonary process. Additional findings: Large the hiatal hernia Dictated by: Romero Aiken M.D. on 05/16/2025 at 16:03 Approved by: Romero Aiken M.D. on 05/16/2025 at 16:05 ECG Data Attestation: I personally reviewed and interpreted this ECG as follows: (ECG shows sinus rhythm at [address] elevation there is a right bundle-branch pattern and a left anterior fascicular block. No old baseline EKG available for review) MDM Narrative Medical decision making narrative: 79-year-old female complaining of chest pain. It is pleuritic in character, and she has been coughing for quite some time. I think it is likely chest wall pain. Differential diagnosis included coronary artery disease felt unlikely with a normal troponin despite a prolonged pain, pulmonary embolism not seen on CT, pneumonia not seen on CT no fever and no leukocytosis. There was an incidental finding of hyponatremia. This appears to be acute, she does not appear to be symptomatic but I do think he needs to be hospitalized until it clears. I anticipate fluid restriction we will. She is admitted to the hospitalist service. Discharge Plan Departure Patient Disposition: Admitted as Observation Clinical Impression: Acute hyponatremia Chest pain Qualifiers: Chest pain type: chest pain on breathing Qualified Code(s): R07.1 - Chest pain on breathing Admit Date/Time: 05/16/25 17:57
--- NOTE | 2025-05-16 18:26 | PM.HP.1 ---
History of Present Illness History of Present Illness Date Patient Seen: 05/16/25 Time Patient Seen: 18:26 Chief complaint: Chest Pain, Cough Narrative: Patient was a 71-year-old female who presented to the ED for right-sided chest pain. This has been fairly constant but somewhat pleuritic in nature. She has been ill for about 3 weeks with a dry cough. She was getting better and then has had progressive pain over last several days. She denies associated fevers, or chills. A recent respiratory PCR was negative. A CT pulmonary angiogram today was negative. She was found to have hyponatremia on her routine labs. She has been trying to stay hydrated. She also notes that she was chronically low-sodium but does not know what the number is. She has been trying to drink fluids but she was not been copiously over drinking water recently either. In addition, the pain that she has is all right along the sternum and increases with breathing, palpation, or movement. [facility] Medical History Sliding hiatal hernia Lumbosacral stenosis without neurogenic claudication Scoliosis Facet arthropathy, lumbar Social History Smoking Status: Never smoker Meds Home Medications and Allergies Home Medications ?Medication ?Instructions ?Recorded ?Confirmed ?Type famotidine 10 mg tablet 10 mg PO BEDTIME 11/01/23 05/14/25 History acetaminophen 650 mg 650 mg PO Q12H 03/26/25 05/14/25 History tablet,extended release (Tylenol Arthritis Pain) acyclovir 400 mg tablet 400 mg PO 3XD 03/26/25 05/14/25 History celecoxib 100 mg capsule 100 mg PO DAILY 03/26/25 05/14/25 History cholecalciferol (vitamin D3) 62.5 mcg PO 03/26/25 05/14/25 History mcg (2,500 unit) capsule levothyroxine 88 mcg tablet 88 mcg PO DAILY 03/26/25 05/14/25 History omeprazole 20 mg capsule,delayed 20 mg PO DAILY 03/26/25 05/14/25 History release Allergies Allergy/AdvReac Type Severity Reaction Status Date / Time No Known Drug Allergies Allergy Verified 05/14/25 14:00 Review of Systems Review of Systems Narrative: All else reviewed and otherwise unremarkable except as noted in the history and physical. Exam Vital Signs (past 8 hours): - 05/16/25 13:07 05/16/25 15:14 05/16/25 15:30 Temperature 98.2 F Pulse Rate 70 60 61 Respiratory Rate 20 15 13 Blood Pressure 154/84 H Pulse Oximetry 98 96 96 Oxygen Delivery Method Room Air 05/16/25 15:30 05/16/25 16:00 05/16/25 16:02 Temperature Pulse Rate 67 64 Respiratory Rate 19 18 Blood Pressure 145/86 H Pulse Oximetry 94 98 Oxygen Delivery Method 05/16/25 16:02 05/16/25 16:30 05/16/25 16:30 Temperature Pulse Rate 61 Respiratory Rate 15 Blood Pressure 161/86 H 172/88 H Pulse Oximetry 98 Oxygen Delivery Method 05/16/25 16:47 05/16/25 16:47 05/16/25 17:00 Temperature Pulse Rate 65 Respiratory Rate Blood Pressure 179/110 H 163/93 H Pulse Oximetry 97 Oxygen Delivery Method 05/16/25 17:00 Temperature Pulse Rate 61 Respiratory Rate 15 Blood Pressure Pulse Oximetry 97 Oxygen Delivery Method Oxygen Delivery Method Room Air Narrative Exam Narrative: NAD, alert and oriented, fluent speech, calm. Normocephalic skull, EOMI, anicteric sclera, symmetric pupils. Oropharynx unremarkable, no droop. Neck supple, midline trachea, no adenopathy. Lungs clear, normal rate and effort. Heart regular, no murmur gallop or rub. Abdomen is soft, non distended and non tender. Extremities are free of edema. Skin is free of rash or lesions. Joints are not swollen or deformed. Judgment appears to be normal. Objective ECG Impression: Intervals [place] Rate: 73 P: 15 [place]: 188 QRS: -63 QRSD: 140 T: 20 QT: 430 QTc: 473 Interpretive Statements Normal sinus rhythm Right bundle branch block Left anterior fascicular block Bifascicular block Imaging Chest x-ray: My impression: Poor inspiratory effort, left costophrenic angle is blunted. Radiologist's impression: Linear right basilar opacity possibly atelectasis versus pneumonia. Mild opacities are present in the left base possibly dependent change/atelectasis/trace effusion. CT scan - chest: Radiologist's impression: FINDINGS: Image quality: Diagnostic. Pulmonary arteries: Pulmonary arteries are normal in size, and demonstrate no intraluminal filling defects to suggest central pulmonary embolism. Lower Neck: No enlarged lymph nodes. Thyroid: No thyroid nodules which require sonographic follow up, per consensus guidelines. Axillae: No enlarged lymph nodes. Chest Wall: Unremarkable. Bones: S-shaped scoliotic curvature is seen. Accentuated thoracic kyphosis is seen. Age-appropriate bony degenerative changes are seen. Lungs and Pleura: Dependent atelectasis is seen. Mild dependent ground-glass opacity can also be seen. No focal infiltrates are seen. No pneumothorax or pleural effusions are seen. Heart: Heart size is normal. No pericardial effusion. Thoracic Vessels: No aortic aneurysm. Mediastinum and Erica: No enlarged lymph nodes. Esophagus: There is a large hiatal hernia present. Upper Abdomen: Visualized upper abdomen solid organs and bowel loops appear normal. IMPRESSION: No pulmonary embolus. No acute cardiopulmonary process. Labs 05/16/25 13:28 05/16/25 13:28 Labs: Laboratory Results - last 24 hr 05/16/25 13:28 WBC 6.4 RBC 3.57 L Hgb 12.2 Hct 35.0 L MCV 98.0 MCH 34.1 H MCHC 34.8 RDW 12.1 Plt Count 240 Neut % (Auto) 68.1 Lymph % (Auto) 22.0 L [place] % (Auto) 7.7 Eos % (Auto) 1.5 L Baso % (Auto) 0.7 Neut # (Auto) 4400 Lymph # (Auto) 1400 [place] # (Auto) 500 Eos # (Auto) 100 Baso # (Auto) 0 PT 11.5 INR 1.0 APTT 33 Sodium 123 L Potassium 4.7 Chloride 91 L Carbon Dioxide 24 BUN 17 Creatinine 0.97 Estimated GFR 60 BUN/Creatinine Ratio 17.5 Glucose 112 H Calcium 8.7 Magnesium 1.9 Total Bilirubin 0.5 AST 31 ALT 21 Alkaline Phosphatase 71 Total Creatine Kinase 58 Troponin I < 0.012 NT-Pro-B Natriuret Pep 67 Total Protein 7.6 Albumin 4.4 Globulin 3.2 Albumin/Globulin Ratio 1.4 Lipase 46 Assessment & Plan Assessment & Plan narrative: 1. Probable hypovolemic hyponatremia, present on admission and active. 2. Pleuritic chest pain.Costochondritis, active. 3. Hypothyroidism, uses 88 mcg of thyroid a day, stable. PLAN: -urine sodium -saline at 100 mL an hour with q.6 BNP. -symptomatic treatment of chest pain and monitor troponins. -she does not tolerate anti-inflammatories with a GERD, we will use oxycodone for pain tonight. Anticipate 1 night in the hospital, supports observation status. Full code. Time-Based Coding :: 35 min spent with patient and on the chart (including review of chart, obtaining history, exam, reviewing outside data, placing orders, documenting exam and treatment plan, and counseling patient) on 05/16. Quality MIPS - Admit I confirm the patient?s Advance Care Plan is present, Code status is documented, Surrogate decision maker is in patient?s record [If Yes, STOP here]: Yes MIPS - Meds 'Current medications' to include all prescriptions, [id number] products, herbals, cannabis/cannabidiol products, and vitamin/mineral/dietary (nutritional) supplements. I have utilized all available resources to obtain, update, or review the patient?s current medications. [If Yes, STOP here]: No
--- NOTE | 2025-05-16 18:39 | PC.NURSE ---
patient states while up to the restroom pain in center of chest is back to a 7/10.
[2025-05-16] MEDS: ACETAMINOPHEN 325 MG TABLET 650 MG PO (18:59)
[2025-05-16] MEDS: SODIUM CHLORIDE 0.9% 1,000 ML 100 ML IV (19:00)
[2025-05-16] MEDS: HYDROCODONE/ACET 5/325 TABLET 1 TAB PO (19:00)
[2025-05-16] MEDS: HYDROCODONE/ACET 5/325 TABLET 2 TAB PO (23:18)
[2025-05-16 23:25] LABS: Blood Urea Nitrogen 14 mg/dL (7-17); Calcium 8.8 mg/dL (8.4-10.2); Carbon Dioxide 27 mmol/L (22-32); Chloride 94 mmol/L (98-107); Estimated Glomerular Filt Rate > 60 mL/min (>60); Glucose 98 mg/dL (70-99); HEMOLYSIS < 15 (0-50); Potassium 4.2 mmol/L (3.4-5.1); Sodium 126 mmol/L (137-145)
[2025-05-16 23:37] LABS: Troponin I < 0.012 ng/mL (0.01-0.034)
[2025-05-17 00:40] VITALS: BP 143/81; PULSE 74; RESP 18; TEMP 35.7; O2SAT 94
[2025-05-17 05:00] VITALS: BP 144/78; PULSE 71; RESP 18; TEMP 35.8; O2SAT 94
[2025-05-17] MEDS: HYDROCODONE/ACET 5/325 TABLET 2 TAB PO (05:02)
[2025-05-17] MEDS: SODIUM CHLORIDE 0.9% 1,000 ML 100 ML IV (05:11)
[2025-05-17 06:04] LABS: Blood Urea Nitrogen 12 mg/dL (7-17); Calcium 9.1 mg/dL (8.4-10.2); Carbon Dioxide 24 mmol/L (22-32); Chloride 98 mmol/L (98-107); Estimated Glomerular Filt Rate > 60 mL/min (>60); Glucose 98 mg/dL (70-99); HEMOLYSIS < 15 (0-50); Potassium 4.4 mmol/L (3.4-5.1); Sodium 129 mmol/L (137-145)
[2025-05-17 06:13] LABS: Troponin I < 0.012 ng/mL (0.01-0.034)
[2025-05-17] MEDS: MAG HYDROX/ALUM/SIMETH 30 ML UDC PO (07:00)
[2025-05-17] MEDS: PANTOPRAZOLE DR 40 MG TABLET PO (07:00)
[2025-05-17] MEDS: LEVOTHYROXINE 88 MCG TABLET PO (07:00)
[2025-05-17] MEDS: DOCUSATE 100 MG CAPSULE 200 MG PO (08:16)
[2025-05-17 08:24] VITALS: BP 159/87; PULSE 68; RESP 17; TEMP 35.7; O2SAT 95
[2025-05-17] MEDS: HYDROCODONE/ACET 5/325 TABLET 1 TAB PO (09:14)
[2025-05-17] MEDS: KETOROLAC 30 MG/ML VIAL 15 MG IV (11:40)
[2025-05-17 12:03] VITALS: BP 138/83; PULSE 65; RESP 14; TEMP 35.8; O2SAT 97
[2025-05-17 13:31] LABS: Blood Urea Nitrogen 12 mg/dL (7-17); Calcium 8.8 mg/dL (8.4-10.2); Carbon Dioxide 22 mmol/L (22-32); Chloride 98 mmol/L (98-107); Estimated Glomerular Filt Rate > 60 mL/min (>60); Glucose 125 mg/dL (70-99); HEMOLYSIS < 15 (0-50); Potassium 4.7 mmol/L (3.4-5.1); Sodium 127 mmol/L (137-145)
--- NOTE | 2025-05-17 13:58 | PM.DS.1 ---
History of Present Illness History of Present Illness Date Patient Seen: 05/30/25 Chief complaint: Chest Pain, Cough Narrative: Chief complaint: Chest pain secondary to costochondritis History of present illness: 05/16: 71-year-old female who presented to the ED for right-sided chest pain. This has been fairly constant but somewhat pleuritic in nature. She has been ill for about 3 weeks with a dry cough. She was getting better and then has had progressive pain over last several days. She denies associated fevers, or chills. A recent respiratory PCR was negative. A CT pulmonary angiogram today was negative. She was found to have hyponatremia on her routine labs. She has been trying to stay hydrated. She also notes that she was chronically low-sodium but does not know what the number is. She has been trying to drink fluids but she was not been copiously over drinking water recently either. In addition, the pain that she has is all right along the sternum and increases with breathing, palpation, or movement. Hospital course: 05/17: Patient is significantly better from chest pain after 1 dose of Toradol 15 mg IV patient was discharged home with 3 days of prednisone 10 mg follow up with PCP Review of systems: No dyspnea No fever or chills No nausea diaphoresis No abdominal pain Physical exam: No acute distress HEENT unremarkable Heart and lungs clear Extremities no edema Assessment and plan: Costochondritis good response to 1 dose of IV Toradol we will place on 3 days of prednisone 10 mg at home 35 minutes were involved in the management of the patient which was involved in direct patient care reassessment review of medications laboratory findings and imaging Discharge Providers Provider Date of admission: 05/16/25 17:57 Discharge Date: 05/17/25 Primary care physician: Che Ivey PA-C Discharge provider: Emery Carrillo MD Exam Vital Signs (past 8 hours): - 05/17/25 08:24 05/17/25 12:03 Temperature 96.3 F L 96.4 F L Pulse Rate 68 65 Respiratory Rate 17 14 Blood Pressure 159/87 H 138/83 Pulse Oximetry 95 97 Oxygen Flow Rate 0 0 Oxygen Delivery Method Room Air Oxygen Flow Rate 0 Objective Labs 05/16/25 13:28 05/17/25 13:00 Labs: Laboratory Results - last 24 hr 05/16/25 05/16/25 05/17/25 13:28 23:09 05:00 Sodium 126 L 129 L Potassium 4.2 4.4 Chloride 94 L 98 Carbon Dioxide 27 24 BUN 14 12 Creatinine 0.80 0.77 Estimated GFR > 60 > 60 BUN/Creatinine Ratio 17.5 15.6 Glucose 98 98 Calcium 8.8 9.1 Troponin I < 0.012 < 0.012 < 0.012 NT-Pro-B Natriuret Pep 67 Ur Random Sodium 05/17/25 05/17/25 08:50 13:00 Sodium 127 L Potassium 4.7 Chloride 98 Carbon Dioxide 22 BUN 12 Creatinine 0.70 Estimated GFR > 60 BUN/Creatinine Ratio 17.1 Glucose 125 H Calcium 8.8 Troponin I NT-Pro-B Natriuret Pep Ur Random Sodium 74 PFSH Medical History Sliding hiatal hernia Lumbosacral stenosis without neurogenic claudication Scoliosis Facet arthropathy, lumbar Social History household members: spouse Smoking Status: Never smoker Discharge Plan Discharge Plan Patient Disposition: Home Discharge orders & Medications Prescriptions: New prednisone 10 mg tablet 10 mg PO DAILY Qty: 3 0RF Continued famotidine 10 mg tablet 10 mg PO BEDTIME bupropion HCl 150 mg tablet extended release 24 hr 150 mg PO DAILY celecoxib 100 mg capsule 100 mg PO DAILY levothyroxine 88 mcg tablet 88 mcg PO DAILY omeprazole 20 mg capsule,delayed release(DR/EC) 20 mg PO DAILY cholecalciferol (vitamin D3) 62.5 mcg (2,500 unit) capsule 62.5 mcg PO DAILY acetaminophen [Tylenol Arthritis Pain] 650 mg tablet extended release 650 mg PO Q12H Follow up/Referrals: Che Ivey PA-C [Primary Care Provider, Medical] Visit Report/Discharge Packet Stand Alone Forms: Patient Portal/API, Stroke Signs & Symptoms Discharge Data Primary Care Provider: Che Ivey Attending Provider: Cory Cormier Admit Date/Time: 05/16/25 17:57 Quality VTE Deep Vein Thrombosis/Pulmonary Embolism Present on Admission: No
--- NOTE | 2025-05-17 14:31 | CM.DANOTE ---
Initial DCP Assessment Note Pt is a 79 yo female, resident of [place], admitted for management of hyponatremia overnight. Patient has been discharged home today. PCP: Che Ivey Payer: BILLIE TOVAR Reviewed chart, pt discussed in multidisciplinary rounds this morning. Patient lives independently with spouse in [place]. Patient is at functional baseline. No barriers identified to patient's safe discharge home w/family to assist; close outpatient f/u recommended. HILARIO Valdez Discharge Planning/Care Management CM Discharge Assessment Start: 05/16/25 18:43 Freq: Status: Active Protocol: Document 05/17/25 14:28 LEIDA (Rec: 05/17/25 14:30 LEIDA [id number]) Discharge Planning Assessment Assigned Discharge HILARIO Peralta [employer] DPOA/Assigned Julius Trent, spouse Designee Name Contact Information [phone], cell Advance Directives? Yes Advance Directives No on File History Provided By Patient Prior Living House Arrangements Household Members spouse Type of Drives own vehicle transporation used prior to admit Independent with ADL Yes 's Is patient alert and Yes oriented? Comment Independent Comment No needs anticipated Barriers to No Discharge Discharge Plan Home Transportation Family Arrangement Referrals Initiated None needed
== END 2025-05-17 15:07 | disposition home or self-care (01) ==
LOC: ED 17:53 → AC 17:58
PROVIDERS: Admitting Provider Hospitalist; Emergency Provider Emergency Medicine; PCP Physician Assistant; Referring Provider Emergency Medicine; Visit Provider Hospitalist
DX: M94.0 Chondrocostal junction syndrome [Tietze] (principal); E03.9 Hypothyroidism, unspecified; E87.1 Hypo-osmolality and hyponatremia
CPT/HCPCS: 36415; 71045; 71275; 80048; 80053; 82550; 83690; 83735; 83880; 84300; 84484; 85025; 85610; 85730; 87040; 93005; 96361; 96374; 99284; G0378; J1885; Q9967

== ENCOUNTER 2025-05-23 12:27 | Emergency (ER) | payer MEDICARE, SELFPAY ==
[2025-05-16 19:45] VITALS: BMI 25.4
[2025-05-23 12:44] VITALS: BP 109/59; PULSE 56; RESP 17; TEMP 36.6; O2SAT 96; BMI 25.4
--- NOTE | 2025-05-23 13:00 | DI.RAD.S_ITS ---
PROCEDURE: XR HUMERUS LT 2V INDICATIONS: injury and pain TECHNIQUE: 2 views of the humerus were acquired. COMPARISON: None. FINDINGS: Bones: There is a moderately displaced oblique fracture seen through the left mid humeral shaft. Age-appropriate bony degenerative changes are seen. The visualized ribs appear intact. Soft tissues: No suspicious soft tissue calcifications. IMPRESSION: Left mid humeral shaft fracture. Dictated by: Romero Aiken M.D. on 05/23/2025 at 12:25 Approved by: Romero Aiken M.D. on 05/23/2025 at 12:26
--- NOTE | 2025-05-23 14:40 | ED_ITS ---
HPI - Extremity Injury (Upper) <Lillie Olguin PA-C - Last Filed: 05/23/25 19:04> General Chief Complaint: Extremity Injury, Upper Stated Complaint: left arm pain Time Seen by Provider: 05/23/25 14:00 Source: patient Mode of arrival: Ambulatory History of Present Illness HPI narrative: Ms. Duncan is a very pleasant 79-year-old female with a past medical history of hyponatremia, hypothyroidism, depression who presents to the emergency department for left arm pain since this afternoon. Patient states that she has actually been experiencing left mid humeral pain for about the last 3 weeks, she has been applying Voltaren cream with minimal relief. 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 She now has significant pain in this area. She denies any falls or direct trauma, no confusion or change in her mental status, no pain with ambulation. Denies headache, neck pain, right arm pain, chest pain, abdominal pain, lower extremity pain. No pain of the left hand, wrist, forearm, elbow or shoulder. Pain is focal to the left mid humerus. No pain medications prior to arrival. No blood thinners. She was seen in the ER on 05/16/2025 for chest pain and cough and was admitted for incidental hyponatremia. She was discharged the following day on prednisone and states that her cough and chest pain is much better. Related Data Home Medications ?Medication ?Instructions ?Recorded ?Confirmed famotidine 10 mg tablet 10 mg PO BEDTIME 11/01/23 acetaminophen 650 mg 650 mg PO Q12H 03/26/2504/25 tablet,extended release (Tylenol Arthritis Pain) celecoxib 100 mg capsule 100 mg PO DAILY 03/26/25 cholecalciferol (vitamin D3) 62.5 62.5 mcg PO DAILY 05/16/25 mcg (2,500 unit) capsule levothyroxine 88 mcg tablet 88 mcg PO DAILY 03/26/25 0 05/16/25 omeprazole 20 mg capsule,delayed 20 mg PO DAILY 05/16/25 release bupropion HCl 150 mg 24 hr tablet, 150 mg PO DAILY 05/16/25 extended release Previous Rx's ?Medication ?Instructions ?Recorded prednisone 10 mg tablet 10 mg PO DAILY #3 tabs 05/17 ondansetron 4 mg disintegrating 4 mg PO Q8H PRN nausea and 05/23/25 tablet vomiting #12 tabs oxycodone-acetaminophen 5 mg-325 1 tab PO Q4-6H PRN pa in #12 tabs 05/23/25 mg tablet Allergies Allergy/AdvReac Type Severity Reaction Status Date / Time No Known Drug Allergies Allergy Verified 05/23/25 12:44 Review of Systems <Lillie Olguin PA-C - Last Filed: 05/23/25 19:04> Review of Systems ROS Unobtainable: All systems reviewed & are unremarkable except as noted in HPI and below Patient History <Lillie Olguin PA-C - Last Filed: 05/23/25 19:04> Medical History Sliding hiatal hernia Lumbosacral stenosis without neurogenic claudication Scoliosis Facet arthropathy, lumbar Social History household members: spouse Exam <Lillie Olguin PA-C - Last Filed: 05/23/25 19:04> Narrative Exam Narrative: GENERAL: 79 year old patient appears stated age. Well-developed patient, sitting in ER recliner with left arm in sling. HEAD: Atraumatic. Normocephalic. EYES: PERRL. Extraocular motions intact. No scleral icterus. No injection or drainage. ENT: Normal TMs and ear canals bilaterally. Nose without bleeding, purulent drainage. Throat without erythema, tonsillar hypertrophy or exudate. Airway patent. NECK: Trachea midline. Cervical ROM intact. No midline cervical tenderness. CARDIOVASCULAR: Regular rate and rhythm. RESPIRATORY: ?Nonlabored respirations. ?Speaking in clear, full sentences. ?Clear to auscultation. Breath sounds equal bilaterally. No wheezes, rales, or rhonchi. ? GASTROINTESTINAL: Abdomen soft, non-tender, nondistended. EXTREMITIES: Significant tenderness to palpation of left humerus with palpable clicking/deformity and mid humeral region. No skin tenting or overlying skin changes. No open wounds. No focal tenderness to palpation of left shoulder, left elbow, left forearm, left wrist, left hand. No tenderness to palpation of remainder appendicular skeleton. Strong radial pulses bilaterally and patient has sensation and strength intact in the distribution of median, ulnar, radial nerve of the left hand. BACK: Nontender without deformity or crepitance. No flank tenderness. NEURO: AOx3. ?Clear speech. ?Moves all 4 extremities appropriately with the exception of left arm. No facial asymmetry. Ambulates independently. Is able to provide clear history. SKIN: No rash or erythema of visible areas. No ecchymoses or wounds. Initial Vital Signs Initial Vital Signs: Vital Signs Temperature 98 F 05/23/25 12:44 Pulse Rate 56 L 05/23/25 12:44 Respiratory Rate 17 05/23/25 12:44 Blood Pressure 109/59 L 05/23/25 12:44 Pulse Oximetry 96 05/23/25 12:44 Oxygen Delivery Method Room Air 05/23/25 12:44 <Pepe Navarro MD - Last Filed: 05/24/25 07:46> Initial Vital Signs Initial Vital Signs: Vital Signs Temperature 98 F 05/23/25 12:44 Pulse Rate 56 L 05/23/25 12:44 Respiratory Rate 17 05/23/25 12:44 Blood Pressure 109/59 L 05/23/25 12:44 Pulse Oximetry 96 05/23/25 12:44 Oxygen Delivery Method Room Air 05/23/25 12:44 Course <Lillie Olguin PA-C - Last Filed: 05/23/25 19:04> Orders Ordered: Discontinued Medications Sodium Chloride (Normal Saline 0.9%) 1,000 mls @ 1,000 mls/hr IV BOLUS ONE Stop: 05/23/25 17:50 Last Infusion: 05/23/25 17:58 Dose: Infused Documented By: Admin: 05/23/25 17:00 Dose: 1,000 mls/hr Documented By: SIA Ibuprofen (Ibuprofen 400 Mg Tablet) 400 mg PO NOW ONE Stop: 05/23/25 14:56 Last Admin: 05/23/25 15:00 Dose: 400 mg Documented By: SIA Ondansetron HCl (Ondansetron 4 Mg/2 Ml Inj) 4 mg IV NOW ONE Stop: 05/23/25 16:05 Last Admin: 05/23/25 17:57 Dose: Not Given Documented By: SIA Oxycodone HCl (Oxycodone Ir 5 Mg Tablet) 5 mg PO NOW ONE Stop: 05/23/25 14:56 Last Admin: 05/23/25 15:00 Dose: 5 mg Documented By: SB Consultations Consultation #1: Discussed case with the orthopedic surgeon on-call, Dr. Colon. Given history of nontraumatic left humeral shaft fracture, recommend CT left arm for possible tumor. He is also seeing if a coaptation splint can be obtained to with the patient and, otherwise she will need a sling and swath. Time: 15:05 Consultation #2: Discussed with CT team who consulted radiologist Dr. Hicks who recommend CT without contrast. Time: 15:12 Vital Signs Vital signs: Vital Signs - 8 hr 05/23/25 12:44 05/23/25 16:37 Temperature 98 F Pulse Rate 56 L 61 Respiratory Rate 17 16 Blood Pressure 109/59 L 132/77 Pulse Oximetry 96 99 Oxygen Delivery Method Room Air Room Air <Pepe Navarro MD - Last Filed: 05/24/25 07:46> Orders Ordered: Discontinued Medications Sodium Chloride (Normal Saline 0.9%) 1,000 mls @ 1,000 mls/hr IV BOLUS ONE Stop: 05/23/25 17:50 Last Infusion: 05/23/25 17:58 Dose: Infused Documented By: Admin: 05/23/25 17:00 Dose: 1,000 mls/hr Documented By: SIA Ibuprofen (Ibuprofen 400 Mg Tablet) 400 mg PO NOW ONE Stop: 05/23/25 14:56 Last Admin: 05/23/25 15:00 Dose: 400 mg Documented By: SIA Ondansetron HCl (Ondansetron 4 Mg/2 Ml Inj) 4 mg IV NOW ONE Stop: 05/23/25 16:05 Last Admin: 05/23/25 17:57 Dose: Not Given Documented By: SIA Oxycodone HCl (Oxycodone Ir 5 Mg Tablet) 5 mg PO NOW ONE Stop: 05/23/25 14:56 Last Admin: 05/23/25 15:00 Dose: 5 mg Documented By: SB Vital Signs Vital signs: Vital Signs - 8 hr 05/23/25 12:44 05/23/25 16:37 Temperature 98 F Pulse Rate 56 L 61 Respiratory Rate 17 16 Blood Pressure 109/59 L 132/77 Pulse Oximetry 96 99 Oxygen Delivery Method Room Air Room Air [facility] - Extremity Injury (Upper) <Lillie Olguin PA-C - Last Filed: 05/23/25 19:04> Medical Records Attestation: I reviewed the patient's medical records. Lab Data 05/23/25 16:18 05/23/25 16:18 Labs: Lab Results 05/23/25 Range/Units 16:18 WBC 8.6 (4.5-11.0) X10^3/uL RBC 3.55 L (4.0-5.2) X10^6/uL Hgb 12.0 (12.0-16.0) g/dL Hct 34.7 L (36-46) % MCV 97.5 (80-100) fL MCH 33.6 (26-34) PG MCHC 34.5 (30-36) % RDW 11.9 (11.6-14.8) % Plt Count 292 (150-400) X10^3/uL Neut % (Auto) 74.7 (50-75) % Lymph % (Auto) 17.6 L (25-40) % [place] % (Auto) 6.0 (3-14) % Eos % (Auto) 0.8 L (2-4) % Baso % (Auto) 0.9 (0-2) % Neut # (Auto) 6400 (7691-2391) /uL Lymph # (Auto) 1500 (6232-3491) /uL [place] # (Auto) 500 (0-900) /uL Eos # (Auto) 100 (0-450) /uL Baso # (Auto) 100 (0-100) /uL Sodium 125 L (137-145) mmol/L Potassium 5.0 (3.4-5.1) mmol/L Chloride 93 L (98-107) mmol/L Carbon Dioxide 24 (22-32) mmol/L BUN 24 H (7-17) mg/dL Creatinine 0.92 (0.52-1.04) mg/dL Estimated GFR > 60 (>60) mL/min BUN/Creatinine Ratio 26.1 H (6-22) Glucose 142 H (70-99) mg/dL Calcium 9.2 (8.4-10.2) mg/dL Total Bilirubin 0.5 (0.2-1.3) mg/dL AST 32 (14-36) IU/L ALT 21 (<35) IU/L Alkaline Phosphatase 72 (38-126) U/L Total Protein 7.5 (6.3-8.2) g/dL Albumin 4.3 (3.5-5.0) g/dL Globulin 3.2 (1.7-4.1) g/dL Albumin/Globulin Ratio 1.3 (1.0-2.8) Imaging Data XR Left Humerus: Radiologist's Impression: PROCEDURE: XR HUMERUS LT 2V INDICATIONS: injury and pain TECHNIQUE: 2 views of the humerus were acquired. COMPARISON: None. FINDINGS: Bones: There is a moderately displaced oblique fracture seen through the left mid humeral shaft. Age-appropriate bony degenerative changes are seen. The visualized ribs appear intact. Soft tissues: No suspicious soft tissue calcifications. IMPRESSION: Left mid humeral shaft fracture. Dictated by: Romero Aiken M.D. on 05/23/2025 at 12:25 Approved by: Romero Aiken M.D. on 05/23/2025 at 12:26 CT LUE: Radiologist's Impression: PROCEDURE: CT UE LT WO CON INDICATIONS: nontraumatic L humeral shaft fracture; tumor?? TECHNIQUE: Noncontrast 3 mm axial sections acquired of the left humerus, with coronal and sagittal reformats. COMPARISON: [facility], [place], XR HUMERUS LT 2V, 05/23/2025, 13:03. FINDINGS: Image quality: Excellent. Bones: As seen on earlier radiograph, there is an acute spiral fracture through mid humeral shaft with anterior and lateral displacement at fracture site and up to 7 mm overlapping at fracture site. No other fracture or dislocation. No gross aggressive appearing bony lesion is identified. No cortical erosion or abnormal periosteal reaction. Soft tissues: There is significant soft tissue edema surrounding mid humeral shaft fracture site. No abnormal soft tissue calcifications. No discrete soft tissue mass is seen. No drainable fluid collection. IMPRESSION: 1. Acute displaced spiral fracture involving mid humeral shaft as above. No definite aggressive appearing intraosseous lesion is noted. No other fracture or dislocation. 2. Soft tissue edema and swelling surrounding mid humeral shaft fracture site. No abnormal soft tissue calcifications. No discrete soft tissue mass or drainable fluid collection. Dictated by: Branden Shoemaker M.D. on 05/23/2025 at 16:06 Approved by: Branden Shoemaker M.D. on 05/23/2025 at 16:[address] [facility] Narrative Medical decision making narrative: 79-year-old female with a past medical history of hyponatremia, hypothyroidism, depression who presents to the emergency department for left arm pain since this afternoon. Differential diagnosis includes but is not limited to left arm sprain, strain, fracture, dislocation, bone neoplasm, etc. On exam patient is in no acute distress, nontoxic appearing, vital signs appropriate with mild low blood pressure and heart rate in triage 109/59, pulse 56. Patient has acute focal pain of the left mid humerus and an x-ray was obtained in triage revealing a left mid humeral shaft fracture. Patient states that she has been experiencing pain of the arm for the last few weeks however with acute pain happening today we will setting something down on the ground. Given x-ray showing significant traumatic fracture with no history of trauma, a full head-to-toe physical exam was performed revealing no other areas of injury or pain. Patient is alert and oriented has a steady gait and denies any history of falls or syncopal episodes. I did review her recent admission 05/16 through 05/17, chest imaging at that time did not reveal any humeral fracture. Consulted ortho who recommend CT of the arm for possible bony tumor. We will also obtain CBC and CMP treat patient's pain with oxycodone and morphine. She was placed into a left upper arm coaptation splint and sling by 1 of the orthopedic staff members and I was present and patient is neurovascularly intact both before and after the application of the splint. 1630: On re-evaluation of patient, her pain is improved significantly since being placed into the coaptation splint and sling. Repeat vital signs are all within normal limits. CT reveals acute displaced spiral fracture involving the mid humeral shaft, no definite aggressive appearing intraosseous lesion is noted. No other fracture or dislocation. There is soft tissue edema and swelling around the mid humeral shaft fracture site no abnormal soft tissue calcifications, no discrete soft tissue mass or drainable fluid collection. I did call and speak with Orthopedic surgery, Dr. Colon again, discussed CT results. He is happy with the patient in the left arm coaptation splint and sling, he plans to see her next . Patient's lab did reveal once again chronic hyponatremia of 125, she was treated with 1 L normal saline, she has not confused or symptomatic and states that this is quite normal for her. Glucose 142. Normal LFTs. Normal WBC 8.6, hemoglobin 12.0, platelets 292. Her pain has improved significantly with splinting. She was prescribed oxycodone and Zofran, recommended supportive care, keeping splint clean and dry, following up promptly with Orthopedics and her primary care doctor. We discussed strict ER return precautions. Patient and her verbalized understanding all information agreeable to plan. She is ambulatory and stable for discharge home. <Pepe Navarro MD - Last Filed: 05/24/25 07:46> Lab Data Labs: Lab Results 05/23/25 Range/Units 16:18 WBC 8.6 (4.5-11.0) X10^3/uL RBC 3.55 L (4.0-5.2) X10^6/uL Hgb 12.0 (12.0-16.0) g/dL Hct 34.7 L (36-46) % MCV 97.5 (80-100) fL MCH 33.6 (26-34) PG MCHC 34.5 (30-36) % RDW 11.9 (11.6-14.8) % Plt Count 292 (150-400) X10^3/uL Neut % (Auto) 74.7 (50-75) % Lymph % (Auto) 17.6 L (25-40) % [place] % (Auto) 6.0 (3-14) % Eos % (Auto) 0.8 L (2-4) % Baso % (Auto) 0.9 (0-2) % Neut # (Auto) 6400 (9849-2892) /uL Lymph # (Auto) 1500 (3981-4836) /uL [place] # (Auto) 500 (0-900) /uL Eos # (Auto) 100 (0-450) /uL Baso # (Auto) 100 (0-100) /uL Sodium 125 L (137-145) mmol/L Potassium 5.0 (3.4-5.1) mmol/L Chloride 93 L (98-107) mmol/L Carbon Dioxide 24 (22-32) mmol/L BUN 24 H (7-17) mg/dL Creatinine 0.92 (0.52-1.04) mg/dL Estimated GFR > 60 (>60) mL/min BUN/Creatinine Ratio 26.1 H (6-22) Glucose 142 H (70-99) mg/dL Calcium 9.2 (8.4-10.2) mg/dL Total Bilirubin 0.5 (0.2-1.3) mg/dL AST 32 (14-36) IU/L ALT 21 (<35) IU/L Alkaline Phosphatase 72 (38-126) U/L Total Protein 7.5 (6.3-8.2) g/dL Albumin 4.3 (3.5-5.0) g/dL Globulin 3.2 (1.7-4.1) g/dL Albumin/Globulin Ratio 1.3 (1.0-2.8) Discharge Plan Departure Patient Disposition: Home Clinical Impression: Chronic hyponatremia Closed fracture of shaft of left humerus Qualifiers: Encounter type: initial encounter Fracture morphology: spiral Fracture alignment: displaced Qualified Code(s): S42.342A - Displaced spiral fracture of shaft of humerus, left arm, initial encounter for closed fracture Instructions: DI for Fracture Activity Restrictions/Additional Instructions: Dear Ms. Duncan, Thank you for coming to the emergency department. Today you were evaluated for left arm pain and your x-ray and CT revealed a fracture on the middle of your humerus. You have been placed into a left arm splint which you should keep on to allow the bone to heal. Please follow up with [facility] next week for repeat imaging and further management. You have been prescribed oxycodone- acetaminophen/Percocet for severe pain and ondansetron/Zofran for nausea. Please use RICE therapy for your pain in addition to ibuprofen/acetaminophen. Rest the painful area. Ice the area of pain/swelling for at least 15 minutes, 4x a day. Compress the area of swelling using a brace, wrap, or splint if applied. Please take Ibuprofen (Motrin/Advil) or Acetaminophen (Tylenol) for pain. These are available over the counter. You may take Ibuprofen 600 mg every 8 hours with food for pain. You may also take Acetaminophen 650 mg every 4-6 hours for pain. Do not exceed 3000 mg of Tylenol a day as this can cause liver damage. Do not drink alcohol with either of these medications. You have been prescribed a short course of narcotic medications. These are potentially dangerous and addictive medications that should be used carefully. While on these medications you cannot drive or operate heavy machinery. Additionally, you cannot sign legal documents or perform any duties such as this. Many people get constipated on narcotic medications so it would be advisable to discuss stool softeners with the pharmacist when you pickle processor your prescription. Please understand that we cannot provide further refills of narcotics or controlled substances through the ED and your pain management will need to be through your Primary Care Provider Please follow up with your primary care doctor within the next 2-3 days for ER follow-up. (If you do not have a PCP you can call [phone]. ?to schedule an appointment with an [facility] Primary Care Provider) IF YOU DEVELOP ANY NEW OR WORSENING SYMPTOMS, RETURN TO THE ER! Please read the attached instructions, they highlight more specific treatments and interventions for you at home. Thank you for letting me participate in your care, Lillie Olguin PA-C Prescriptions: New oxycodone-acetaminophen 5-325 mg tablet 1 tab PO Q4-6H PRN (Reason: pain) Qty: 12 0RF ondansetron 4 mg tablet,disintegrating 4 mg PO Q8H PRN (Reason: nausea and vomiting) Qty: 12 0RF No Action famotidine 10 mg tablet 10 mg PO BEDTIME bupropion HCl 150 mg tablet extended release 24 hr 150 mg PO DAILY prednisone 10 mg tablet 10 mg PO DAILY Qty: 3 0RF celecoxib 100 mg capsule 100 mg PO DAILY levothyroxine 88 mcg tablet 88 mcg PO DAILY omeprazole 20 mg capsule,delayed release(DR/EC) 20 mg PO DAILY cholecalciferol (vitamin D3) 62.5 mcg (2,500 unit) capsule 62.5 mcg PO DAILY acetaminophen [Tylenol Arthritis Pain] 650 mg tablet extended release 650 mg PO Q12H Referrals: Cameron Colon MD [Physician, Orthopedic Surgery] Referral Note: L humerus fracture Che Ivey PA-C [Primary Care Provider, Medical] Stand Alone Forms: Patient Portal/API ED Sign-out <Pepe Navarro MD - Last Filed: 05/24/25 07:46> Cosign ED Attending Alyce Attestation: I was immediately available in the department for consultation. ?This documentation has been reviewed and I agree with assessment and plan. Supervised by Pepe Navarro MD
[2025-05-23] MEDS: IBUPROFEN 400 MG TABLET PO (15:00)
[2025-05-23] MEDS: OXYCODONE IR 5 MG TABLET PO (15:00)
--- NOTE | 2025-05-23 15:10 | DI.CT.S_ITS ---
PROCEDURE: CT UE LT WO CON INDICATIONS: nontraumatic L humeral shaft fracture; tumor?? TECHNIQUE: Noncontrast 3 mm axial sections acquired of the left humerus, with coronal and sagittal reformats. COMPARISON: [facility], [place], XR HUMERUS LT 2V, 05/23/2025, 13:03. FINDINGS: Image quality: Excellent. Bones: As seen on earlier radiograph, there is an acute spiral fracture through mid humeral shaft with anterior and lateral displacement at fracture site and up to 7 mm overlapping at fracture site. No other fracture or dislocation. No gross aggressive appearing bony lesion is identified. No cortical erosion or abnormal periosteal reaction. Soft tissues: There is significant soft tissue edema surrounding mid humeral shaft fracture site. No abnormal soft tissue calcifications. No discrete soft tissue mass is seen. No drainable fluid collection. IMPRESSION: 1. Acute displaced spiral fracture involving mid humeral shaft as above. No definite aggressive appearing intraosseous lesion is noted. No other fracture or dislocation. 2. Soft tissue edema and swelling surrounding mid humeral shaft fracture site. No abnormal soft tissue calcifications. No discrete soft tissue mass or drainable fluid collection. Dictated by: Branden Shoemaker M.D. on 05/23/2025 at 16:06 Approved by: Branden Shoemaker M.D. on 05/23/2025 at 16:09
[2025-05-23 16:31] LABS: Add Manual Diff / Slide Review NO; Hematocrit 34.7 % (36-46); Hemoglobin 12.0 g/dL (12.0-16.0); Lymphocytes Absolute Auto 1500 /uL (1100-4500); Mean Corpuscular HGB Conc 34.5 % (30-36); Mean Corpuscular Hemoglobin 33.6 PG (26-34); Mean Corpuscular Volume 97.5 fL (80-100); Platelet Count 292 X10^3/uL (150-400)
[2025-05-23 16:37] VITALS: BP 132/77; PULSE 61; RESP 16; O2SAT 99
[2025-05-23 16:44] LABS: Alanine Aminotransferase 21 IU/L (<35); Albumin 4.3 g/dL (3.5-5.0); Albumin Globulin Ratio 1.3 (1.0-2.8); Alkaline Phosphatase 72 U/L (38-126); Blood Urea Nitrogen 24 mg/dL (7-17); Calcium 9.2 mg/dL (8.4-10.2); Carbon Dioxide 24 mmol/L (22-32); Chloride 93 mmol/L (98-107); Estimated Glomerular Filt Rate > 60 mL/min (>60); Globulin 3.2 g/dL (1.7-4.1); Glucose 142 mg/dL (70-99); HEMOLYSIS 28 (0-50); Potassium 5.0 mmol/L (3.4-5.1); Sodium 125 mmol/L (137-145); Total Protein 7.5 g/dL (6.3-8.2)
[2025-05-23] MEDS: SODIUM CHLORIDE 0.9% 1,000 ML 1000 ML IV (17:00)
[2025-05-23 18:01] VITALS: BP 139/84; PULSE 74; RESP 16; O2SAT 96
== END 2025-05-23 18:01 | disposition home or self-care (01) ==
PROVIDERS: Emergency Provider Physician Assistant; PCP Physician Assistant
DX: S42.342A Displaced spiral fracture of shaft of humerus, left arm, initial encounter for closed fracture (principal); E87.1 Hypo-osmolality and hyponatremia; X58.XXXA Exposure to other specified factors, initial encounter
CPT/HCPCS: 36415; 73060; 73200; 80053; 85025; 96360; 99284

== ENCOUNTER 2025-09-11 10:36 | Outpatient (CLI) | payer MEDICARE, SELFPAY ==
[2025-05-16 19:45] VITALS: BMI 25.4
[2025-09-11] VITALS (27 sets, daily range): BP systolic 72–189; BP diastolic 46–109; PULSE 52–68; RESP 12–18; TEMP 36.6; O2SAT 95–100
[2025-09-11] MEDS: MIDAZOLAM 2 MG/2 ML VIAL IV (11:47)
[2025-09-11] MEDS: LIDOCAINE 1% 20 ML 5 ML INJ (11:53)
[2025-09-11] MEDS: MIDAZOLAM 2 MG/2 ML VIAL 1 MG IV (12:10)
--- NOTE | 2025-09-11 12:39 | P.PCN_ITS ---
Date/Time/Diagnoses Date of procedure: 09/11/25 Time of procedure: 12:39 Pre-procedure diagnosis: 1. RECALCITRANT FACET ARTHROPATHY Post-procedure diagnosis: same Procedure Notes Procedure: 1. BILATERAL L2, L3, L4 MEDIAL BRANCH RADIOFREQUENCY NEUROTOMY Indications: Dorothy is referred by ELOISE Ivey for treatment of facet arthropathy. Physician: Ky Dodge Total Fluoroscopy time (seconds): 23 Total sedation minutes: 43 Complications: none Procedure in detail & Post-procedure care: DESCRIPTION OF PROCEDURE Bilateral L3, L4 and L5 medial branch radiofrequency neurotomy The patient is well known to this clinic having undergone previous facet injections with good but temporary relief. The patient has experienced appropriate, concordant relief with previous facet and median branch blocks but the patient's pain has been recalcitrant to further conservative measures. Therefore, based upon the patient's relief and persistent symptoms, the patient is considered an appropriate candidate for facet rhizotomy. All of the patient's questions regarding the risks versus benefits of the procedure, including, but not limited to, bleeding, infection, temporary as well as lasting nerve injury, paralysis, stroke, and , as well treatment alternatives were answered to satisfaction. After obtaining informed consent, denial of pertinent drug allergies, as well as being made aware of the potential risks of bleeding, infection, spinal cord trauma, paralysis, temporary and permanent nerve damage, seizure, stroke, and possible , the patient was brought to the fluoroscopy suite and positioned prone on the fluoroscopy table. After review of previous anaesthesic history and IV conscious sedation the patient was deemed safe to proceed with today's procedure with IV conscious sedation as ASA class II designation. Safety time-out was performed to confirm patient ID, procedure to be performed and site of procedure. IV sedation was accomplished with a combination of 3mg of Versed administered by the RN after DO order, titrated to patient comfort during the course of the procedure while the patient remained responsive to all verbal commands. The lumbar region was prepped in usual sterile fashion and covered with a fenestrated drape in the usual sterile fashion. Appropriate monitors applied including pulse oximeter, pulse, and blood pressure for regular monitoring throughout the procedure. After local infiltration using 1% lidocaine, under fluoroscopic guidance, a 10- cm RF insulated needle with a 10-mm active tip was positioned parallel to the junction of the right the superior articulating process where the L4 medial branch resides. Needle placement was confirmed with motor stimulation of .5v on the right which produced local stimulation without radicular component. The stimulation was then increased to 2v with, once again, only local multifidus stimulation without radicular component. The needle was then removed and the identical procedure was performed along the length of the right L3 medial branch with motor stimulation at .7v on the right. The identical procedure was once again performed along the length of the right L2 and medial branch with motor stimulation of .5v on the right. The medial branches were then anesthetised with 0.5% marcaine. This was then followed by two discreet lesions performed at 80 degrees Celsius for 90 seconds each. The identical procedures were repeated on the left. The patient tolerated the procedure well without signs or symptoms of complications prior to transfer to the recovery area continued monitoring without incident. The patient was then transferred to the recovery area where they were observed for an appropriate period of time after the injection. The patient reported a VAS score of 7 prior to the procedure and a post-procedure VAS of 1. POST OP INSTRUCTIONS The patient was provided a Pain Log to continue to record the patient's response to the target-specific procedure prior to the patient's follow-up visit with the referring physician. Additionally, specific post-injection care instructions and a contact number to our office were provided if concerns arise regarding possible complications associated with the procedure are suspected.
[2025-09-11] MEDS: ONDANSETRON 4 MG/2 ML INJ IV ×2 (12:45→14:02)
[2025-09-11] MEDS: SODIUM CHLORIDE 0.9% 500 ML 1000 ML IV (12:45)
== END 2025-09-11 14:23 | disposition home or self-care (01) ==
LOC: RAD 10:37
PROVIDERS: Family Provider Physician Assistant; PCP Physician Assistant; Referring Provider Physical Medicine & Rehabilitation; Visit Provider Physical Medicine & Rehabilitation
DX: M47.816 Spondylosis without myelopathy or radiculopathy, lumbar region (principal)
CPT/HCPCS: 64635; 64636; 99152; 99153; J2250; J2405; J7030

== ENCOUNTER 2025-09-13 13:45 | Outpatient (RCR) | payer MEDICARE, SELFPAY ==
[2025-05-16 19:45] VITALS: BMI 25.4
--- NOTE | 2025-07-17 16:45 | PT.OPPOC ---
Physical, Occupational & Speech Therapy At [facility] Current Diagnoses Pain in left shoulder (07/17/25) Visit Care Team Role Provider Type Che Ivey PA-C Family Provider Advanced Shroud Line Tier Primary Care Provider Specialty: Medical Address: [address] [place] [address], [id number] Email: Cameron Colon MD Attending Provider Physician Referring Provider Specialty: Orthopedic Surgery Address: [address] [place] [address], [id number] Email: [email or web address] Plan Of Care PT OP: Cervical/Upper Extremity Start: 07/17/25 16:22 Freq: Status: Active Protocol: Document 07/17/25 12:15 DCW (Rec: 07/17/25 16:44 DCW [id number]) Out-Patient Physical Therapy Visit Information Visit Information Visit Type Initial Evaluation Visit Start Time 12:15 Visit Stop Time 13:00 Visit Number 1 Number of CONTACT CENTER CONSULTANT Visits 0 Progress Note Due 08/16/25 Evaluation Information Evaluation Date 08/16/25 Current Condition History of Current Condition Onset Date 8 week history Current Complaints Left arm pain, stiffness History of Current Pt is a 79 year old female presenting to skilled Condition therapy eight weeks s/p left mid-humerus fracture. Pt reports that she was walking on grass, stepped in a hole, and then fell onto her hands and knees. Had no pain at the time, occasional soreness in her left arm, especially when driving, but didn't think much of it until eight weeks ago, she just bent over and set something down, experienced severe pain in her arm, and felt my arm snap. Pt was found to have a spiral fracture in her mid left humerus. Since that time, pt has been wearing a Ramirez brace and a sling. Notes she will take it off for a shower every other day, and a few hours in the evening when she is sitting around the house to just let it be, but otherwise wears the brace and sling constantly. Reports ortho has given her a few home exercises, including pendulums, moving her hand and wrist, elbow flexion, and shoulder ER/IR, but is still recommending no weight-bearing or resistance. Pt is hesitant to perform much activity, has apprehension about getting her arm moving again, but also greatly desires to get rid of the brace and get back to driving. OP-PT Subjective Patient Comments Patient Comments I want to be able to use my are and to drive. Notes her is having a knee replacement this upcoming Wednesday, but they have friends and neighbors available to assist as needed. Shoulder Goniometric Range of Motion Shoulder Measured in Degrees Right Active Testing Position Sitting Flexion 158 Extension 70 Abduction 163 External Rotation at 80 0 degrees Abduction Left Passive Testing Position Supine Flexion 42 Abduction 36 External Rotation at 22 0 degrees Abduction Left Active Testing Position Sitting Flexion 20 Extension 34 Abduction 32 External Rotation at 8 0 degrees Abduction Elbow/Forearm Range of Motion Elbow/Forearm Measured in Degrees Right Active ROM Testing Position Sitting Elbow Flexion ( 152 degrees) Elbow Hyperextension 6 Left Active ROM Testing Position Sitting Elbow Flexion ( 125 degrees) Elbow Extension ( 36 degrees) Therapeutic Exercises Sitting Exercises Table slides Sitting Exercise Table slides - PROM flexion Name Side left Physical Therapy Assessment Rehab Potential Rehabilitation Good Potential Evaluation Complexity Number of Personal 3 or More Factors/ Comorbidities Number of Body 4 or More Systems Impaired Clinical Unstable Presentation at Evaluation Impairments Impairments Activity Tolerance,Functional Activities,Functional Mobility,Pain,ROM,Soft Tissue Mobility,Strength,Tone Goals Two Impairment Severely limited left shoulder AROM (flex 20?, abd 32?) Fpc Goal (LTG) Pt to demonstrate improved active left shoulder ROM with flexion and abduction to >90? LTG Duration 10/15/25 One Impairment Pt does not have an appropriate home exercise program Fpc Goal (LTG) Pt to demonstrate ability to correctly perform four home exercises without cueing in order to display independence with HEP LTG Duration 10/15/25 Assessment Summary Assessment Pt presents with signs and symptoms consistent with referring diagnosis. Pain and decreased ROM secondary to mid-humerus fracture limiting pt's functional mobility and ADLs. Pt currently still very painful with attempted motion, but has been fairly compliant with PROM HEP provided by ortho. Pt will likely benefit from skilled therapy with focus on PROM, with transition to AROM and finally strengthening as she progresses with fracture healing and improving pain. Physical Therapy Plan Frequency and Duration Frequency of 2x/Week Treatment Plan of Care Start 07/17/25 Date Plan of Care End 10/15/25 Date Therapeutic Interventions Therapeutic Home Exercise Program,Joint Mobilizations,Manual Interventions Therapy,Neuromuscular Re-education,Patient/Caregiver Education,Self-Care/Home Management,Soft Tissue Mobilization,Taping,Therapeutic Activities,Therapeutic Exercises,Vestibular Rehabilitation Modalities Cold Pack/Ice Massage,Electric Stimulation,Hot Packs, Ultrasound Next Visit Focus/Plan Next Note Type Treatment Note Next Visit Plan Left shoulder and elbow PROM, wrist and aeronautical test engineer exercises Plan of Care Dates Plan of Care Start Date 07/17/25 Plan of Care End Date 10/15/25 Electronically Signed by: Audi Sharma, PT 07/17/25 2429 If you are in agreement with this Plan of Care, please return a signed and dated copy. I have reviewed this Plan of Care and certify that the skilled therapy services above are required to meet the patient?s needs. Physician Signature Date Printed Name and Credentials Clinical Instructor Signature Printed Name and Credentials
--- NOTE | 2025-07-25 16:06 | PT.OTN ---
Current Diagnoses Pain in left shoulder (07/25/25) Physical Therapy Treatment Note PT OP: Cervical/Upper Extremity Start: 07/17/25 16:22 Freq: Status: Active Protocol: Document 07/25/25 15:20 DCW (Rec: 07/25/25 16:06 DCW [id number]) Out-Patient Physical Therapy Visit Information Visit Information Visit Type Treatment Note Visit Start Time 15:20 Visit Stop Time 16:00 Visit Number 2 Number of SLAB CONDITIONER SUPERVISOR Visits 0 Progress Note Due 08/16/25 Evaluation Information Evaluation Date 08/16/25 OP-PT Subjective Patient Comments Patient Comments Pt reports having less overall pain, but notes pain is still very present. It is feeling better though Therapeutic Exercises Supine Exercises AAROM Supine Exercise Name Semi-recumbent AAROM Side left Comments Shoulder flexion, abduction, ER PROM Supine Exercise Name Semi-recumbent PROM Side left Comments Shoulder flexion, abduction, ER, circumduction Sitting Exercises Elbow flexion Sitting Exercise Elbow flexion/extension AROM Name Side left Pulleys Sitting Exercise Pulleys Name Side bilateral Comments Flexion, Scaption Standing Exercises AAROM Standing Exercise AAROM shoulder /c wand Name Side left Physical Therapy Assessment Impairments Impairments Activity Tolerance,Functional Activities,Functional Mobility,Pain,ROM,Soft Tissue Mobility,Strength,Tone Goals Two Impairment Severely limited left shoulder AROM (flex 20?, abd 32?) Banjo Repair Person Goal (LTG) Pt to demonstrate improved active left shoulder ROM with flexion and abduction to >90? LTG Duration 10/15/25 One Impairment Pt does not have an appropriate home exercise program Banjo Repair Person Goal (LTG) Pt to demonstrate ability to correctly perform four home exercises without cueing in order to display independence with HEP LTG Duration 10/15/25 Assessment Summary Assessment Good response to activity, pt happy with increased movement with left shoulder. Continue transition from PROM to AA/AROM. Provided handout for flex/abd with cane. Physical Therapy Plan Frequency and Duration Frequency of 2x/Week Treatment Plan of Care Start 07/17/25 Date Plan of Care End 10/15/25 Date Therapeutic Interventions Therapeutic Home Exercise Program,Joint Mobilizations,Manual Interventions Therapy,Neuromuscular Re-education,Patient/Caregiver Education,Self-Care/Home Management,Soft Tissue Mobilization,Taping,Therapeutic Activities,Therapeutic Exercises,Vestibular Rehabilitation Modalities Cold Pack/Ice Massage,Electric Stimulation,Hot Packs, Ultrasound Next Visit Focus/Plan Next Note Type Treatment Note Next Visit Plan Left shoulder and elbow PROM, wrist and brake lining driller exercises
--- NOTE | 2025-07-27 16:11 | PT.OTN ---
Current Diagnoses Pain in left shoulder (07/27/25) Physical Therapy Treatment Note PT OP: Cervical/Upper Extremity Start: 07/17/25 16:22 Freq: Status: Active Protocol: Document 07/27/25 11:43 NBM (Rec: 07/27/25 12:45 NBM Laptop) Out-Patient Physical Therapy Visit Information Visit Information Visit Type Treatment Note Visit Start Time 11:42 Visit Stop Time 12:27 Visit Number 3 Number of BACKWINDER Visits 1 Progress Note Due 08/16/25 Evaluation Information Evaluation Date 08/16/25 OP-PT Subjective Patient Comments Patient Comments Dorothy reports she is still not driving yet and is doing exercises. Up until this week it's been quite painful but it's much less painful now. Pain is 1/10 in L shoulder when not moving it but 4/10 when doing pulleys . Her next ortho follow up is early August. Therapeutic Exercises Supine Exercises AAROM Supine Exercise Name Semi-recumbent AAROM Side left Equipment Used cues for scap setting Comments Shoulder flexion, abduction, ER PROM Supine Exercise Name Semi-recumbent PROM Side left Equipment Used w/ breathwork for guarding Comments Shoulder flexion, abduction, ER, circumduction, Wrist flex/ext Sitting Exercises Elbow flexion Sitting Exercise Elbow flexion/extension AROM Name Side left Pulleys Sitting Exercise Pulleys Name Side left Equipment Used mirror, tactile cues, postural/core education re: scoliosis Comments Flexion, Scaption; Low back pain with tall sit improves w/ TrA activation Standing Exercises AAROM Standing Exercise AAROM shoulder /c wand Name Side left Manual Therapy Treatment Consent Patient gave verbal Yes consent for manual treatment Soft Tissue Mobilization L shoulder Body Location UT, LS Mobilization Type Rolling Intensity/Depth Moderate Body Position Supine Self-Care/Home Management Treatment Education Patient Education Body Mechanics,Home Exercise Program,Pain Management, Posture Other Education Education for tall sitting posture with emphasis on scapular setting and improving L UT overactivation. Pt reports LBP with corrected posture, possibly related to severe scoliosis, and LBP improves with Transverse abdominis m. activation. Edu w/ visual aids for TrA anatomy and interrelationship with diaphragm, pelvic floor, and importance of not breathholding so she can sustain improved sitting and standing posture. HEP review with emphasis on incorporating these cues into exercises. Physical Therapy Assessment Goals Two Impairment Severely limited left shoulder AROM (flex 20?, abd 32?) Head Inspector Goal (LTG) Pt to demonstrate improved active left shoulder ROM with flexion and abduction to >90? LTG Duration 10/15/25 One Impairment Pt does not have an appropriate home exercise program Fpc Goal (LTG) Pt to demonstrate ability to correctly perform four home exercises without cueing in order to display independence with HEP LTG Duration 10/15/25 Assessment Summary Assessment Dorothy is educated on scapular setting and appropriate core activation to relieve low back pain with upright sitting posture after brief discussion of pt's scoliosis. She is able to self-correct for breathwork and chin tuck but requires consistent cues for L UT overactivation and scapular setting with exercises. Edu to pt re: heated elbow stretch 10 min daily in supine as a passive way to improve L elbow extension, and how to perform L wrist flexion/extension stretches with R hand. Physical Therapy Plan Frequency and Duration Frequency of 2x/Week Treatment Plan of Care Start 07/17/25 Date Plan of Care End 10/15/25 Date Next Visit Focus/Plan Next Note Type Treatment Note Next Visit Plan Left shoulder and elbow PROM, wrist and mold checker exercises
--- NOTE | 2025-07-30 13:01 | PT.OTN ---
Current Diagnoses Pain in left shoulder (07/30/25) Physical Therapy Treatment Note PT OP: Cervical/Upper Extremity Start: 07/17/25 16:22 Freq: Status: Active Protocol: Document 07/30/25 12:20 DCW (Rec: 07/30/25 13:01 DCW [id number]) Out-Patient Physical Therapy Visit Information Visit Information Visit Type Treatment Note Visit Start Time 12:20 Visit Stop Time 13:00 Visit Number 4 Number of BLACK ASH WORKER Visits 0 Progress Note Due 08/16/25 Evaluation Information Evaluation Date 08/16/25 OP-PT Subjective Patient Comments Patient Comments It's doing alright. It's getting better. Therapeutic Exercises Supine Exercises AAROM Supine Exercise Name Semi-recumbent AAROM/AROM Side left Equipment Used cues for scap setting Comments Shoulder flexion, abduction, ER PROM Supine Exercise Name Semi-recumbent PROM Side left Equipment Used w/ breathwork for guarding Comments Shoulder flexion, abduction, ER, circumduction, Wrist flex/ext Sitting Exercises Pulleys Sitting Exercise Pulleys Name Side left Comments Flexion, Scaption Standing Exercises Wall slides Standing Exercise Wall slides Name Side left Comments flexion AAROM Standing Exercise AAROM shoulder /c wand Name Side left Comments Flexion, Abduction, ER Manual Therapy Treatment Soft Tissue Mobilization L shoulder Body Location UT, LS Mobilization Type Rolling Intensity/Depth Moderate Body Position Semi-recumbent Physical Therapy Assessment Impairments Impairments Activity Tolerance,Functional Activities,Functional Mobility,Pain,ROM,Soft Tissue Mobility,Strength,Tone Goals Two Impairment Severely limited left shoulder AROM (flex 20?, abd 32?) Pinball Machine Repairer Goal (LTG) Pt to demonstrate improved active left shoulder ROM with flexion and abduction to >90? LTG Duration 10/15/25 One Impairment Pt does not have an appropriate home exercise program Half-Way Goal (LTG) Pt to demonstrate ability to correctly perform four home exercises without cueing in order to display independence with HEP LTG Duration 10/15/25 Assessment Summary Assessment Pt continues to progress well, some slight improvements in both passive and active-assisted ROM. Continue focusing on ROM, pain-control, muscle tone. Physical Therapy Plan Frequency and Duration Frequency of 2x/Week Treatment Plan of Care Start 07/17/25 Date Plan of Care End 10/15/25 Date Therapeutic Interventions Therapeutic Home Exercise Program,Joint Mobilizations,Manual Interventions Therapy,Neuromuscular Re-education,Patient/Caregiver Education,Self-Care/Home Management,Soft Tissue Mobilization,Taping,Therapeutic Activities,Therapeutic Exercises,Vestibular Rehabilitation Modalities Cold Pack/Ice Massage,Electric Stimulation,Hot Packs, Ultrasound Next Visit Focus/Plan Next Note Type Treatment Note Next Visit Plan Left shoulder and elbow PROM, wrist and charm filter operator helper exercises
--- NOTE | 2025-08-02 15:16 | PT.OTN ---
Current Diagnoses Pain in left shoulder (08/02/25) Physical Therapy Treatment Note PT OP: Cervical/Upper Extremity Start: 07/17/25 16:22 Freq: Status: Active Protocol: Document 08/02/25 13:53 NBM (Rec: 08/02/25 15:00 NBM Laptop) Out-Patient Physical Therapy Visit Information Visit Information Visit Type Treatment Note Visit Start Time 13:47 Visit Stop Time 14:37 Visit Number 5 Number of CARAMEL CUTTER HELPER Visits 1 Progress Note Due 08/16/25 Evaluation Information Evaluation Date 08/16/25 OP-PT Subjective Patient Comments Patient Comments Dorothy reports 2/10 L arm pain currently. It's doing better but it's aggravated with trying to reach too high. She can wash her hair now with both hands, and can almost get L hand to R shoulder. Going to side is the most painful. She was able to stop wearing sling altogether two days ago and is without sling for several hours a day, except had knee replacement yesterday so she's wearing it more while helping with his caregiving. Therapeutic Exercises Supine Exercises L elbow extension stretch Supine Exercise Name w/ moist heat around elbow Resistance 2# DB in L hand neutral forearm Equipment Used towel roll under elbow Reps/Minutes 5' w/ DB, 3' without Comments STM and PROM follows, education during PROM Supine Exercise Name Semi-recumbent PROM Side left Equipment Used w/ breathwork for guarding Comments Shoulder flexion, abduction, ER, circumduction, Wrist flex/ext Sitting Exercises wrist AROM Sitting Exercise dowel w/ rope wind up/down Name Side bilateral Reps/Minutes x3 Comments cues L>R focus, posture w/ scap setting stretch Sitting Exercise wrist stretches 1. extension 2. flexion Name Side left Resistance gentle overpressure w/ R hand Equipment Used elbow supported Reps/Minutes 2 x 20 ea Comments cues set up Elbow flexion Sitting Exercise Elbow flexion/extension AROM Name Side left Pulleys Sitting Exercise Pulleys Name Side left Equipment Used mirror Comments Flexion, Scaption, pt self corrects consistently for UT overactivation Table slides Sitting Exercise Table slides - PROM flexion Name Side left Comments verbal HEP review Standing Exercises Wall slides Standing Exercise Wall slides Name Side left Equipment Used towel, tactile cues scap squeeze Reps/Minutes x10 Comments flexion AAROM Standing Exercise AAROM shoulder /c wand Name Side left Comments Flexion, Abduction, ER Manual Therapy Treatment Consent Patient gave verbal Yes consent for manual treatment Soft Tissue Mobilization L shoulder Body Location UT, LS Mobilization Type Rolling Intensity/Depth Moderate Body Position Semi-recumbent Physical Therapy Assessment Goals Two Impairment Severely limited left shoulder AROM (flex 20?, abd 32?) Custodial Goal (LTG) Pt to demonstrate improved active left shoulder ROM with flexion and abduction to >90? LTG Duration 10/15/25 One Impairment Pt does not have an appropriate home exercise program Electric Refrigerator Preparer Goal (LTG) Pt to demonstrate ability to correctly perform four home exercises without cueing in order to display independence with HEP LTG Duration 10/15/25 Assessment Summary Assessment Pt's self-awareness of L Upper trapezius m. overactivation improves with increased self-correction, and L elbow extension observably improves with heated stretch using low load (measurements not taken). She requires initial cues for increasing L wrist AROM with rope wind up/down and is able to do so painfree but shoulder fatigues and pt demos L UT overactivation compensation. Physical Therapy Plan Frequency and Duration Frequency of 2x/Week Treatment Plan of Care Start 07/17/25 Date Plan of Care End 10/15/25 Date Next Visit Focus/Plan Next Note Type Treatment Note Next Visit Plan Left shoulder and elbow PROM, wrist and safety officer exercises
--- NOTE | 2025-08-08 12:15 | PT.OTN ---
Current Diagnoses Pain in left shoulder (08/08/25) Physical Therapy Treatment Note PT OP: Cervical/Upper Extremity Start: 07/17/25 16:22 Freq: Status: Active Protocol: Document 08/08/25 11:30 DCW (Rec: 08/08/25 12:14 DCW [id number]) Out-Patient Physical Therapy Visit Information Visit Information Visit Type Treatment Note Visit Start Time 11:30 Visit Stop Time 12:15 Visit Number 6 Number of PLANT CONTROLLER Visits 0 Progress Note Due 08/16/25 Evaluation Information Evaluation Date 07/17/25 OP-PT Subjective Patient Comments Patient Comments Pt reports she hasn't been wearing her brace at home anymore, and has been trying to use my arm for everything. Admits she hasn't been doing her formal exercises, but is taking care of her , who recently had a TKA. Therapeutic Exercises Supine Exercises PROM Supine Exercise Name Semi-recumbent PROM Side left Comments Shoulder flexion, abduction, ER, circumduction, Wrist flex/ext Sitting Exercises Pulleys Sitting Exercise Pulleys Name Side left Comments Flexion, Scaption Standing Exercises Wall slides Standing Exercise Wall slides Name Side left Reps/Minutes x10 Comments flexion, abduction AAROM Standing Exercise AAROM shoulder /c wand Name Side left Comments Flexion, Abduction, ER Manual Therapy Treatment Consent Patient gave verbal Yes consent for manual treatment Soft Tissue Mobilization L shoulder Body Location UT, LS Mobilization Type Rolling Intensity/Depth Moderate Body Position Semi-recumbent Physical Therapy Assessment Impairments Impairments Activity Tolerance,Functional Activities,Functional Mobility,Pain,ROM,Soft Tissue Mobility,Strength,Tone Goals Two Impairment Severely limited left shoulder AROM (flex 20?, abd 32?) Fci Goal (LTG) Pt to demonstrate improved active left shoulder ROM with flexion and abduction to >90? LTG Duration 10/15/25 One Impairment Pt does not have an appropriate home exercise program Fci Goal (LTG) Pt to demonstrate ability to correctly perform four home exercises without cueing in order to display independence with HEP LTG Duration 10/15/25 Assessment Summary Assessment Pt using her arm more day-to-day, has significantly reduced amount of time she is wearing her sling or brace. Pt doing well with increasing PROM and AAROM. Continue to focus on mobility and functional activities . Physical Therapy Plan Frequency and Duration Frequency of 2x/Week Treatment Plan of Care Start 07/17/25 Date Plan of Care End 10/15/25 Date Therapeutic Interventions Therapeutic Home Exercise Program,Joint Mobilizations,Manual Interventions Therapy,Neuromuscular Re-education,Patient/Caregiver Education,Self-Care/Home Management,Soft Tissue Mobilization,Taping,Therapeutic Activities,Therapeutic Exercises,Vestibular Rehabilitation Modalities Cold Pack/Ice Massage,Electric Stimulation,Hot Packs, Ultrasound Next Visit Focus/Plan Next Note Type Treatment Note Next Visit Plan Left shoulder and elbow PROM, wrist and waterproofer helper exercises
--- NOTE | 2025-08-10 16:37 | PT.OTN ---
Current Diagnoses Pain in left shoulder (08/10/25) Physical Therapy Treatment Note PT OP: Cervical/Upper Extremity Start: 07/17/25 16:22 Freq: Status: Active Protocol: Document 08/10/25 14:59 NBM (Rec: 08/10/25 16:36 NBM Laptop) Out-Patient Physical Therapy Visit Information Visit Information Visit Type Treatment Note Visit Start Time 14:40 Visit Stop Time 15:25 Visit Number 7 Number of BULBS FARMWORKER Visits 1 Progress Note Due 08/16/25 Evaluation Information Evaluation Date 07/17/25 OP-PT Subjective Patient Comments Patient Comments Dorothy reports her shoulder is fine but her L arm has been sore today, possibly because yesterday was the first time she did not wear the splint for the entire day. She wore it briefly this morning and arrives without it. She does pendulums regularly, but has not been consistent with home exercises since she's been busy with doing things around the house and is paying attention to squeezing her shoulders and keeping her shoulder down with activities. Therapeutic Exercises Supine Exercises L elbow extension stretch Supine Exercise Name w/ moist heat around elbow Resistance 1# DB in L hand neutral forearm Reps/Minutes 5' w/ DB, 3' without Comments STM and PROM follows PROM Supine Exercise Name PROM Side left Comments Shoulder flexion, abduction, ER, circumduction, Wrist flex/ext Sitting Exercises stretch Sitting Exercise wrist stretches 1. extension 2. flexion Name Side left Resistance gentle overpressure w/ R hand Equipment Used elbow supported Reps/Minutes 2 x 30 ea Comments cues set up Pulleys Sitting Exercise Pulleys Name Side left Comments Flexion, Scaption Standing Exercises Wall slides Standing Exercise Wall slides Name Side left Equipment Used towel Reps/Minutes x12 ea Comments flexion, abduction AAROM Standing Exercise AAROM shoulder /c wand Name Side left Comments Flexion, Abduction, ER Manual Therapy Treatment Consent Patient gave verbal Yes consent for manual treatment Soft Tissue Mobilization L shoulder Body Location UT, LS Mobilization Type Rolling Intensity/Depth Moderate Body Position Sitting Comments Supine: STM to L biceps brachii, pec; cross-friction to wrist flexor and extensor common tendons. Physical Therapy Assessment Goals Two Impairment Severely limited left shoulder AROM (flex 20?, abd 32?) Nurses' Aide Goal (LTG) Pt to demonstrate improved active left shoulder ROM with flexion and abduction to >90? LTG Duration 10/15/25 One Impairment Pt does not have an appropriate home exercise program Nurses' Aide Goal (LTG) Pt to demonstrate ability to correctly perform four home exercises without cueing in order to display independence with HEP LTG Duration 10/15/25 Assessment Summary Assessment Dorothy presents with increased L upper extremity soreness today, following first full day of not wearing sling or brace at all, and her L arm pain resolves by end of session. She is educated on head positioning to improve posture and Upper trapezius m. overactivation and demos improved self-awareness with self-correction throughout session. Physical Therapy Plan Frequency and Duration Frequency of 2x/Week Treatment Plan of Care Start 07/17/25 Date Plan of Care End 10/15/25 Date Next Visit Focus/Plan Next Note Type Treatment Note Next Visit Plan Left shoulder and elbow PROM, wrist and platform power technician exercises
--- NOTE | 2025-08-28 17:01 | PT.OTN ---
Current Diagnoses Pain in left shoulder (08/28/25) Physical Therapy Treatment Note PT OP: Cervical/Upper Extremity Start: 07/17/25 16:22 Freq: Status: Active Protocol: Document 08/28/25 13:55 NBM (Rec: 08/28/25 17:01 NBM Laptop) Out-Patient Physical Therapy Visit Information Visit Information Visit Type Treatment Note Visit Note PN. Visit Start Time 13:50 Visit Stop Time 14:39 Visit Number 8 Number of MONOTYPE OPERATOR Visits 2 Progress Note Due 08/16/25 OP-PT Subjective Patient Comments Patient Comments Dorothy reports she had steroid injection yesterday which seems to be helping already. No L shoulder pain. She states Dr. Elkins said we can go harder in PT and she's excited about that. She was gardening this morning and was able to lift two flower pots and carry by supporting under with R hand, and is happy about that. Therapeutic Exercises Supine Exercises AROM Supine Exercise Name flex/ext: shoulder Side left Reps/Minutes x10 wo and w 1# DB PROM Supine Exercise Name PROM Side left Comments Shoulder flexion, abduction, ER, circumduction, Wrist flex/ext Sitting Exercises wrist AROM Sitting Exercise flexion/extension Name Side left Reps/Minutes x10 ea wo and w/ 1# DB Comments slight dorsal pain in carpals noted w/ flexion stretch Sitting Exercise wrist stretches 1. extension 2. flexion Name Side left Resistance gentle overpressure w/ R hand Equipment Used elbow supported Reps/Minutes 2 x 30 ea Comments cues set up Elbow flexion Sitting Exercise Elbow flexion/extension AROM Name Side left Reps/Minutes x10 ea wo and w 1# DB Comments painfree Pulleys Sitting Exercise Pulleys Name Side left Comments Flexion, Scaption Standing Exercises Y lift off Standing Exercise flex/ext assisted on wall Name Side bilateral Reps/Minutes x6 wall clock Standing Exercise 12, 6, 9 Name Side left Resistance lvl 1 looped around both wrists Reps/Minutes x8 band walking Side bilateral Resistance green loop around wrists Equipment Used handrail Reps/Minutes 15 ft ea Comments occ cues to maintain tension Wall slides Standing Exercise Byron w/ forearms on wall Name Reps/Minutes x10 AAROM Standing Exercise AAROM shoulder /c wand Name Side left Comments Flexion, Abduction, ER Manual Therapy Treatment Consent Patient gave verbal Yes consent for manual treatment Soft Tissue Mobilization L shoulder Mobilization Type Rolling Intensity/Depth Moderate Body Position Supine Comments Supine: STM to L biceps brachii, deltoid, UT and LS Physical Therapy Assessment Goals Two Impairment Severely limited left shoulder AROM (flex 20?, abd 32?) Welfare Eligibility Worker Goal (LTG) Pt to demonstrate improved active left shoulder ROM with flexion and abduction to >90? 08/28/25: AROM L zeb Flexion observed to be ~120 deg in supine. LTG Duration 10/15/25 One Impairment Pt does not have an appropriate home exercise program Prison Goal (LTG) Pt to demonstrate ability to correctly perform four home exercises without cueing in order to display independence with HEP 08/28/25: Consistent cues for UT overactivation w/ overhead reach. LTG Duration 10/15/25 (08/28/25: progressing) Assessment Summary Assessment Dorothy presents with 1/10 L shoulder pain following steroid injection yesterday to L shoulder, which remains unchanged end of session. Treatment focus on increasing mobility and functional activities. L AROM shoulder flexion observed to be approximately 120 degrees in supine, demonstrating progressing ROM. 1# resistance is introduced to L shoulder, elbow, and wrist flexion and extension without pain except for non -lingering mild pain to dorsal aspect of carpals noted with resisted wrist flexion, where pt has a lump from prior L humeral fracture. Physical Therapy Plan Frequency and Duration Frequency of 2x/Week Treatment Plan of Care Start 07/17/25 Date Plan of Care End 10/15/25 Date Next Visit Focus/Plan Next Note Type Treatment Note Next Visit Plan Left shoulder and elbow PROM, wrist and operating room aide exercises
--- NOTE | 2025-08-29 14:50 | PT.OPPN ---
Current Diagnoses Pain in left shoulder (08/28/25) Physical Therapy Progress Note PT OP: Cervical/Upper Extremity Start: 07/17/25 16:22 Freq: Status: Active Protocol: Document 08/28/25 14:30 MISA (Rec: 08/29/25 14:47 MISA [id number]) Out-Patient Physical Therapy Visit Information Visit Information Visit Type Progress Note Visit Note PN. Visit Start Time 13:50 Visit Stop Time 14:39 Visit Number 8 Number of INDEPENDENT CONSULTANT Visits 2 Progress Note Due 09/27/25 OP-PT Subjective Patient Comments Patient Comments Patient reports her shoulder is doing well and is improving in function and strength. Physical Therapy Assessment Goals Two Impairment Severely limited left shoulder AROM (flex 20?, abd 32?) Beef Trimmer Goal (LTG) Pt to demonstrate improved active left shoulder ROM with flexion and abduction to >90? 08/28/25: AROM L zeb Flexion observed to be ~120 deg in supine. LTG Duration 10/15/25 One Impairment Pt does not have an appropriate home exercise program Retirement Goal (LTG) Pt to demonstrate ability to correctly perform four home exercises without cueing in order to display independence with HEP 08/28/25: Consistent cues for UT overactivation w/ overhead reach. LTG Duration 10/15/25 (08/28/25: progressing) Assessment Summary Assessment Patient presenting to PT after 8 visits s/p L humeral fracture in late April 2025. Patient has made improvement with symptoms and function but has only recently started progressing AROM exercises secondary to healing timelines and symptoms. Objective investigation today revealed improvement in AROM (see measures). Patient will continue to benefit from PT to address deficits and return to full prior level of function. Physical Therapy Plan Frequency and Duration Frequency of 2x/Week Treatment Plan of Care Start 07/17/25 Date Plan of Care End 10/15/25 Date Next Visit Focus/Plan Next Note Type Treatment Note Next Visit Plan Left shoulder and elbow PROM, wrist and sole skiver exercises
--- NOTE | 2025-08-30 15:33 | PT.OTN ---
Current Diagnoses Pain in left shoulder (08/30/25) Physical Therapy Treatment Note PT OP: Cervical/Upper Extremity Start: 07/17/25 16:22 Freq: Status: Active Protocol: Document 08/30/25 14:00 NBM (Rec: 08/30/25 15:33 NBM Laptop) Out-Patient Physical Therapy Visit Information Visit Information Visit Type Treatment Note Visit Start Time 13:52 Visit Stop Time 14:37 Visit Number 9 Number of COVER MACHINE OPERATOR Visits 3 Progress Note Due 09/27/25 Evaluation Information Evaluation Date 07/17/25 OP-PT Subjective Patient Comments Patient Comments Dorothy reports she wasn't as sore as she thought she would be after last session and recovered quickly. Shoulder feels good since injection. She gets pain in arm with reaching overhead. I think it's just not very strong. Cardio Equipment Upper Body Ergometer (UBE) Duration (Minutes) 5 RPM 60 Seat Position 10 Height 0.5 Other 2.5 fwd/bwd Therapeutic Exercises Supine Exercises AAROM Supine Exercise Name Semi-recumbent AAROM: 1. venkatesh 2. hands interlocked Side left Equipment Used cues for scap setting Comments Shoulder flexion, tight; pt to progress handgrip closer to interlaced PROM Supine Exercise Name PROM Side left Comments Shoulder flexion Sitting Exercises supination/pronation Side left Resistance 2# DB held at base Equipment Used elbow supported on tray table Reps/Minutes x10 ea Comments painfree, cues eccentric control wrist AROM Sitting Exercise flexion/extension Name Side left Reps/Minutes x5 ea; x10 1# DB elbow supported through range Comments slight dorsal pain in carpals noted w/ flexion stretch Sitting Exercise wrist stretches 1. extension 2. flexion Name Side left Resistance gentle overpressure w/ R hand Reps/Minutes 2 x 30 ea Comments cues set up, hold time Elbow flexion Sitting Exercise Elbow flexion/extension AROM Name Side left Reps/Minutes x10 Comments painfree; vc eccentric control Standing Exercises inclined table slides Standing Exercise next Name Side left Equipment Used stair railings Flexion Side left Resistance Lvl 1 Tb anchored under L LE Reps/Minutes x5 Comments challenging, UT overactivation compensation IR Standing Exercise 1. elbow at side 2. elbow at 90 deg Name Side left Reps/Minutes x10 ea ER Side left Resistance Lvl 1 Tb peach Reps/Minutes x10 Y lift off Standing Exercise 1. flex/ext assisted on wall 2. Y lift off/lower off Name wall Side bilateral Reps/Minutes x5 ea wall clock Standing Exercise 12, 6, 9 Name Side left Resistance lvl 1 looped around both wrists Reps/Minutes x10 band walking Side bilateral Resistance green loop around wrists Equipment Used handrail Reps/Minutes 15 ft ea Comments occ cues to maintain tension AAROM Standing Exercise AAROM shoulder /c wand Name Side left Equipment Used mirror Comments Flexion, Abduction, ER Self-Care/Home Management Treatment Education Patient Education Home Exercise Program,Pain Management Other Education Pt educated on cryotherapy vs heat therapy for pain management and encouraged to trial ice at home if heat (pt's preference) does not improve L shoulder soreness noted end of session. Physical Therapy Assessment Goals Two Impairment Severely limited left shoulder AROM (flex 20?, abd 32?) Senior Care Goal (LTG) Pt to demonstrate improved active left shoulder ROM with flexion and abduction to >90? 08/28/25: AROM L zeb Flexion observed to be ~120 deg in supine. LTG Duration 10/15/25 One Impairment Pt does not have an appropriate home exercise program Senior Care Goal (LTG) Pt to demonstrate ability to correctly perform four home exercises without cueing in order to display independence with HEP 08/28/25: Consistent cues for UT overactivation w/ overhead reach. LTG Duration 10/15/25 (08/28/25: progressing) Assessment Summary Assessment Treatment focus on shoulder, wrist and media job titles strengthening, and PROM. She is reminded to perform supine AAROM flexion to improve L shoulder ROM w/ focus on progressing media job titles closer as tolerated. She is able to perform resisted wrist flexion and extension exercises through range with 1# DB. Variable resistance L shoulder IR/ER in standing introduced and tolerated painfree; L shoulder flexion Lvl 1 too challenging as demonstrated with overactive Upper trapezius m. compensation and fatigue. Pt encouraged to trial ice at home if heat (pt's preference) does not improve L shoulder soreness noted end of session. Physical Therapy Plan Frequency and Duration Frequency of 2x/Week Treatment Plan of Care Start 07/17/25 Date Plan of Care End 10/15/25 Date Next Visit Focus/Plan Next Note Type Treatment Note Next Visit Plan Left shoulder and elbow PROM, wrist and media job titles exercises
--- NOTE | 2025-09-04 16:37 | PT.OTN ---
Current Diagnoses Pain in left shoulder (09/04/25) Physical Therapy Treatment Note PT OP: Cervical/Upper Extremity Start: 07/17/25 16:22 Freq: Status: Active Protocol: Document 09/04/25 13:48 NBM (Rec: 09/04/25 14:38 NBM Laptop) Out-Patient Physical Therapy Visit Information Visit Information Visit Type Treatment Note Visit Start Time 13:45 Visit Stop Time 14:35 Visit Number 11 Number of PRINCIPAL CONSULTING ENGINEER Visits 2 Progress Note Due 09/27/25 OP-PT Subjective Patient Comments Patient Comments Dorothy reports she hasn't been doing much of her formal exercises I have just been living but she notices she is able to do more and more. She demonstrates increased L shoulder flexion start of session with hands almost interlaced with tightness but not painful. She notices shoulder still climbs up. Patient Reported Improving Progress Cardio Equipment Upper Body Ergometer (UBE) Duration (Minutes) 5 RPM 60 Seat Position 10 Height 0.5 Other 2.5 fwd/bwd, vc scap setting Therapeutic Exercises Supine Exercises AAROM Supine Exercise Name Semi-recumbent AAROM: 1. venkatesh 2. hands interlocked Side left Equipment Used cues for scap setting Reps/Minutes 1.x10 ea over/underhand technology development intern, 30 hold 2. Comments Shoulder flex, tight underhand>over; Sitting Exercises supination/pronation Side left Resistance hammer held at base Equipment Used elbow/forearm supported on tray table Reps/Minutes x10 ea Comments painfree, cues eccentric control Pulleys Sitting Exercise Pulleys in standing Name Side left Equipment Used mirror Comments Flexion, Scaption Standing Exercises inclined table slides Standing Exercise pos feedback response Name Side left Equipment Used stair railings Reps/Minutes x10, 30 hold x2 Comments visibly improved ROM w/ improved L UT overactivation IR Standing Exercise 1. elbow at 90 deg 2. elbow at side Name Side left Reps/Minutes 1. x10 ea 2. x15 Comments 1. PRINCIPAL CONSULTING ENGINEER elbow support rep 5 ER Side left Resistance Lvl 1 Tb peach, cues for increased distance from anchor Reps/Minutes x15 Y lift off Standing Exercise Y lift off wall w/ lower off wall Name Side bilateral Reps/Minutes x10 ea wall clock Standing Exercise 12, 6, 9 Name Side left Resistance lvl 1 looped around both wrists Reps/Minutes x10 band walking Side bilateral Resistance green loop around wrists Equipment Used handrail Reps/Minutes 15 ft ea Comments occ cues to maintain tension, head position/posture AAROM Standing Exercise AAROM shoulder /c wand Name Side left Resistance cues closer hand technology development intern for increased ROM Equipment Used mirror Comments Flexion, Abduction, ER Hot Pack/Cold Pack Treatment Cold Pack Location L shoulder Patient Position Hooklying Patient Tolerance Good Comments 8 min, LEs elevated on bolster, ortiz and all needs within reach. Physical Therapy Assessment Goals Two Impairment Severely limited left shoulder AROM (flex 20?, abd 32?) [facility] Goal (LTG) Pt to demonstrate improved active left shoulder ROM with flexion and abduction to >90? 08/28/25: AROM L zeb Flexion observed to be ~120 deg in supine. LTG Duration 10/15/25 One Impairment Pt does not have an appropriate home exercise program [facility] Goal (LTG) Pt to demonstrate ability to correctly perform four home exercises without cueing in order to display independence with HEP 08/28/25: Consistent cues for UT overactivation w/ overhead reach. LTG Duration 10/15/25 (08/28/25: progressing) Assessment Summary Assessment AAROM shoulder flexion tighter with underhand technology development intern than overhand. 4/10 L shoulder pain with supine overhead AAROM improves to 1/10 following cryotherapy. Pt is reminded to perform supine AAROM flexion to improve L shoulder ROM w/ focus on progressing technology development intern closer as tolerated as part of HEP, and encouraged in use of cryotherapy as needed for soreness. Physical Therapy Plan Frequency and Duration Frequency of 2x/Week Treatment Plan of Care Start 07/17/25 Date Plan of Care End 10/15/25 Date Next Visit Focus/Plan Next Note Type Treatment Note Next Visit Plan Left shoulder and elbow PROM, wrist and technology development intern exercises
--- NOTE | 2025-09-10 14:33 | PT.OTN ---
Current Diagnoses Pain in left shoulder (09/10/25) Physical Therapy Treatment Note PT OP: Cervical/Upper Extremity Start: 07/17/25 16:22 Freq: Status: Active Protocol: Document 09/10/25 13:45 DCW (Rec: 09/10/25 14:33 DCW [id number]) Out-Patient Physical Therapy Visit Information Visit Information Visit Type Treatment Note Visit Start Time 13:45 Visit Stop Time 14:35 Visit Number 12 Number of TECHNOLOGY SUPPORT ANALYST Visits 0 Progress Note Due 09/27/25 Evaluation Information Evaluation Date 07/17/25 OP-PT Subjective Patient Comments Patient Comments I think it's getting better, I seem to be doing more and more. Cardio Equipment Upper Body Ergometer (UBE) Duration (Minutes) 5 RPM 60 Seat Position 11 Height 3 Other 2.5 fwd/bwd, vc scap setting Therapeutic Exercises Sitting Exercises ER/IR Sitting Exercise ER/IR Name Side left Resistance 2.2# Yellow ball Pulleys Sitting Exercise Pulleys Name Side bilateral Comments Flexion, Scaption Standing Exercises Abduction Standing Exercise Shoulder Abduction Name Side left Resistance Lv 1 Flexion Standing Exercise Shoulder Flexion Name Side left Resistance Lvl 1 Tb ER Standing Exercise ER Name Side bilateral Resistance Lv 1 Reps/Minutes x20 band walking Side bilateral Resistance green loop around wrists Equipment Used handrail Comments occ cues to maintain tension, head position/posture AAROM Standing Exercise AAROM shoulder /c weighted bar Name Side bilateral Resistance 3.5# bat Comments Flexion, Abduction, ER Manual Therapy Treatment Soft Tissue Mobilization L shoulder Mobilization Type Strumming,Sustained Pressure,Trigger Point Release Intensity/Depth Moderate Body Position Sitting Comments Supine: STM to L biceps brachii, deltoid, UT and LS Physical Therapy Assessment Impairments Impairments Activity Tolerance,Functional Activities,Functional Mobility,Pain,ROM,Soft Tissue Mobility,Strength,Tone Goals Two Impairment Severely limited left shoulder AROM (flex 20?, abd 32?) Manager Technical Training Goal (LTG) Pt to demonstrate improved active left shoulder ROM with flexion and abduction to >90? 08/28/25: AROM L zeb Flexion observed to be ~120 deg in supine. LTG Duration 10/15/25 One Impairment Pt does not have an appropriate home exercise program Manager Technical Training Goal (LTG) Pt to demonstrate ability to correctly perform four home exercises without cueing in order to display independence with HEP 08/28/25: Consistent cues for UT overactivation w/ overhead reach. LTG Duration 10/15/25 (08/28/25: progressing) Assessment Summary Assessment Pt feeling very happy with her progress and current level of function, understands her HEP well. Feels like she will do well with discharge to independent [facility] following last scheduled visit later this week. Physical Therapy Plan Frequency and Duration Frequency of 2x/Week Treatment Plan of Care Start 07/17/25 Date Plan of Care End 10/15/25 Date Therapeutic Interventions Therapeutic Home Exercise Program,Joint Mobilizations,Manual Interventions Therapy,Neuromuscular Re-education,Patient/Caregiver Education,Self-Care/Home Management,Soft Tissue Mobilization,Taping,Therapeutic Activities,Therapeutic Exercises,Vestibular Rehabilitation Modalities Cold Pack/Ice Massage,Electric Stimulation,Hot Packs, Ultrasound Next Visit Focus/Plan Next Note Type Discharge Summary Next Visit Plan Left shoulder and elbow PROM, wrist and clinical statistics manager exercises
--- NOTE | 2025-09-13 14:07 | PT.OPDS ---
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 Primary Care Provider Specialty: Medical Address: [address] [place], [address] Email: Cameron Colon MD Attending Provider Physician Referring Provider Specialty: Orthopedic Surgery Address: [address] [place], [place] [address], [place], [address] Email: [email or web address] Visit Number Visit Number 13 Discharge Summary PT OP: Cervical/Upper Extremity Start: 07/17/25 16:22 Freq: Status: Active Protocol: Document 09/13/25 13:45 DCW (Rec: 09/13/25 14:07 DCW [id number]) Out-Patient Physical Therapy Visit Information Visit Information Visit Type Discharge Summary Visit Start Time 13:45 Visit Stop Time 14:00 Visit Number 13 Number of CYTOLOGIST Visits 0 Progress Note Due 09/27/25 Evaluation Information Evaluation Date 07/17/25 OP-PT Subjective Patient Comments Patient Comments Pt reports she is still comfortable with the idea of discharge. Shoulder Goniometric Range of Motion Shoulder Left Passive Testing Position Supine Flexion 136 Abduction 124 External Rotation at 85 0 degrees Abduction Left Active Testing Position Sitting Flexion 119 Abduction 113 External Rotation at 70 0 degrees Abduction Physical Therapy Assessment Goals Two Impairment Severely limited left shoulder AROM (flex 20?, abd 32?) Tile Mechanic Goal (LTG) Pt to demonstrate improved active left shoulder ROM with flexion and abduction to >90? 09/13/25: AROM 119 Flexion, 113 Abduction LTG Duration Met One Impairment Pt does not have an appropriate home exercise program Senior Care Goal (LTG) Pt to demonstrate ability to correctly perform four home exercises without cueing in order to display independence with HEP LTG Duration Met Assessment Summary Assessment Pt feels like she is doing well with her HEP, has no questions, is doing them daily, admits she might forget some of them occasionally, but overall feels good about it. Notes only lingering complaint is that she just can't reach as high with the left arm as I can with the right, but I'm getting there. Physical Therapy Plan Frequency and Duration Frequency of 2x/Week Treatment Plan of Care Start 07/17/25 Date Plan of Care End 10/15/25 Date Therapeutic Interventions Therapeutic Home Exercise Program,Joint Mobilizations,Manual Interventions Therapy,Neuromuscular Re-education,Patient/Caregiver Education,Self-Care/Home Management,Soft Tissue Mobilization,Taping,Therapeutic Activities,Therapeutic Exercises,Vestibular Rehabilitation Modalities Cold Pack/Ice Massage,Electric Stimulation,Hot Packs, Ultrasound Discharge Physical Therapy Discharge Reasons Goals Met Next Visit Focus/Plan Next Note Type Discharge Summary
== END 2025-09-18 14:51 | disposition home or self-care (01) ==
LOC: PHYS 13:45
PROVIDERS: Family Provider Physician Assistant; PCP Physician Assistant; Referring Provider Orthopaedic Surgery; Visit Provider Orthopaedic Surgery
DX: M25.512 Pain in left shoulder (principal)
CPT/HCPCS: 97010; 97110; 97140; 97163; 97535